=== PATIENT | female | born 1990 | race Caucasian/White ===

== ENCOUNTER → 2017-06-29 16:22 | Outpatient (CLI) | payer MEDICAID, SELFPAY ==
[2017-06-29 19:57] LABS: Chlamydia Trachomatis by PCR Negative (Negative); Neisserai gonorrhoeae by PCR Negative (Negative); Probe Check PASS; Sample Adequacy Control PASS; Specimen Processing Control PASS
[2017-07-04 15:58] LABS: HPV Reflexed? NOT INDICATED
== END ==
PROVIDERS: Visit Provider Obstetrics & Gynecology
DX: Z32.01 Encounter for pregnancy test, result positive (principal); Z12.4 Encounter for screening for malignant neoplasm of cervix; Z11.3 Encounter for screening for infections with a predominantly sexual mode of transmission
CPT/HCPCS: 87491; 87591; 88175; G0145

== ENCOUNTER → 2017-07-20 11:23 | Outpatient (CLI) | payer MEDICAID, SELFPAY ==
[2017-07-20 13:44] LABS: Color, Urine Straw (Yellow); Glucose, Dipstick Normal (Normal); Ketone-Dipstick Negative (Negative); Leukocyte Esterase-Dipstick Negative /ul (Negative); Nitrite-Dipstick Negative (Negative); Occult Blood-Urine Negative /ul (Negative); Protein-Dipstick Negative (Negative); Specific Gravity, Urine 1.005 (1.002-1.030); Urine Bilirubin Dipstick Negative (Negative); Urine Clarity Clear (Clear); Urine Urobilinogen Normal (Normal)
[2017-07-20 13:53] LABS: Absolute Lymphocyte Count 2.38 X10^3/ul (0.83-4.51); Absolute Neutrophil Count 5.6 X10^3/uL (2.0-7.7); Basophil# 0.01 X10^3/uL; Basophil% 0.1 % (0-1); Eosinophil# 0.06 X10^3/uL; Eosinophils% 0.7 % (0-5); Hematocrit 38.4 % (37-47); Hemoglobin 12.7 g/dl (12.0-15.0); Lymphocyte # 2.38 X10^3/ul (4.0); Lymphocyte % 27.3 % (19-41); Mean Corp Hgb Conc 33.1 g/gl (32-36); Mean Corpuscular Hgb 31.4 pg (27.0-32.0); Mean Platelet Vol. 10.7 fl (6.2-12.0); Monocyte# 0.66 X10^3/uL; Monocyte% 7.6 % (0-10); Neutrophil # 5.59 X10^3/uL (2.7-7.7); Neutrophil % 64.1 % (47-70); Platelet Count 301 K/mm3 (150-450); RBC Distribution Width CV 13.9 % (11.6-14.6); RBC Distribution Width SD 48.5 fl (35.1-43.9); Red Blood Count 4.04 M/mm3 (4.2-5.4); White Blood Count 8.7 K/mm3 (4.4-11.0)
[2017-07-20 13:54] LABS: POSITIVE COUNT NO; POSITIVE DIFFERENTIAL NO; POSITIVE MORPHOLOGY NO
[2017-07-20 13:56] LABS: COTININE Drug Screen Negative (<200 ng/mL)
[2017-07-20 13:59] LABS: Amphetamine Urine VISTA NEGATIVE (<1000 ng/mL); Barbiturate Urine VISTA NEGATIVE (< 200 ng/mL); Benzodiazepine Urine VISTA NEGATIVE (< 200 ng/mL); Cocaine Urine VISTA NEGATIVE (< 300 ng/mL); Ecstacy Urine VISTA NEGATIVE (< 500 ng/mL); Methadone Urine VISTA NEGATIVE (< 300 ng/mL); PCP Urine VISTA NEGATIVE (< 25 ng/mL); THC Urine VISTA NEGATIVE (< 50 ng/mL)
[2017-07-20 14:04] LABS: Vista UDS pH Range 6
[2017-07-21 01:09] LABS: Prenatal RPR NONREACTIVE (NONREACTIVE)
[2017-07-21 10:23] LABS: HIV - WCH Non-Reactive (Nonreactive); Rubella IgG < 0.2 IU/mL
[2017-07-21 11:20] LABS: HEPATITIS B SURFACE AG Negative (Negative)
[2017-07-21 11:21] LABS: Hep C Antibodies 0.2 s/co ratio (0.0-0.9)
== END ==
PROVIDERS: Visit Provider Obstetrics & Gynecology
DX: Z34.81 Encounter for supervision of other normal pregnancy, first trimester (principal)
CPT/HCPCS: 36415; 80307; 81002; 84443; 85025; 86703; 86762; 86803; 87340

== ENCOUNTER 2017-11-21 15:30 | Outpatient (CLI) | payer MEDICAID, SELFPAY ==
[2017-11-21 13:14] VITALS: BMI 41.1
[2017-11-21 13:23] LABS: Mucous, Urine 0 SEEN /hpf (<or=2+); Red Blood Cells-Urine 0 SEEN /hpf (0-5); Squamous Epithelial Cells - UA 0 SEEN /hpf (5-10); White Blood Cells 0 SEEN /hpf (0-5)
[2017-11-21 13:27] LABS: Hematocrit 32.4 % (37-47); Hemoglobin 10.8 g/dl (12.0-15.0); Mean Corp Hgb Conc 33.3 g/gl (32-36); Mean Corpuscular Hgb 31.9 pg (27.0-32.0); Mean Corpuscular Volume 95.6 fL (81-99); Mean Platelet Vol. 10.2 fl (6.2-12.0); Platelet Count 232 K/mm3 (150-450); RBC Distribution Width CV 13.4 % (11.6-14.6); RBC Distribution Width SD 44.8 fl (35.1-43.9); Red Blood Count 3.39 M/mm3 (4.2-5.4); White Blood Count 11.1 K/mm3 (4.4-11.0)
[2017-11-21 13:28] LABS: Color, Urine Yellow (Yellow); Glucose, Dipstick Normal (Normal); Ketone-Dipstick Negative (Negative); Leukocyte Esterase-Dipstick Negative /ul (Negative); Nitrite-Dipstick Negative (Negative); Occult Blood-Urine Negative /ul (Negative); Protein-Dipstick Negative (Negative); Urine Bilirubin Dipstick Negative (Negative); Urine Clarity Cloudy (Clear); Urine Urobilinogen Normal (Normal)
[2017-11-21 13:29] LABS: Scan Indicated on CBC? Y/N NO
[2017-11-21 13:34] LABS: Bacteria RARE /hpf (None Seen)
[2017-11-21 13:35] LABS: Amorphous Sediment 2+
[2017-11-21 13:46] LABS: ALB/GLOB Ratio 0.6 RATIO (0.9-2.4); AST(SGOT) 20 U/L (15-37); Alanine Aminotransfer ALT/SGPT 44 U/L (13-56); Albumin, Serum 2.4 g/dL (3.2-5.0); Alkaline Phosphatase 82 U/L (45-117); Anion Gap 10 (5-15); BUN 9 mg/dL (7-18); BUN/Creat Ratio 16.3 RATIO (10-20); Calcium,Total 8.8 mg/dL (8.5-10.1); Chloride 107 mmol/L (98-107); Creatinine, Serum 0.55 mg/dL (0.55-1.02); EST Glomerular Filtration Rate 141 mL/min (>60); Est Glom Filt Rate - Afr Amer 170 mL/min (>60); Estimated Creatinine Clearance 122.59 ml/min; Globulin 4.2 g/dL (2.2-4.2); Glucose 97 mg/dL (74-106); Potassium 3.5 mmol/L (3.5-5.1); Protein, Total 6.6 g/dL (6.4-8.2); Sodium Level 139 mmol/L (136-145)
--- NOTE | 2017-11-21 15:36 | US_ITS ---
STUDY: ABDOMINAL ULTRASOUND - RIGHT UPPER QUADRANT REASON FOR VISIT: Female, 27 years old. Right upper quadrant pain, 26 weeks TECHNIQUE: Ultrasound evaluation of the right upper quadrant was performed with real-time and static maria-scale imaging. TECHNICAL QUALITY: Adequate. COMPARISON: None. FINDINGS: Liver: The liver measures 16.9 cm. There is normal echogenicity of the liver. The bile ducts are within normal limits. There is hepatic color flow. The direction of portal flow is hepatopetal. There is no demonstrated mass lesion. Gallbladder: Normal distended gallbladder. The gallbladder wall measures 3 mm. There is a negative sonographic Vladerrama's sign. There is no pericholecystic fluid. There are multiple echogenic structures within the gallbladder, consistent with multiple gallstones. Common Bile Duct (C.B.D.): The common bile duct measures 5 mm. Pancreas: Normal size of the head, body and tail of the pancreas. There is normal echogenicity of the pancreas. There is no demonstrated pancreatic mass or cyst. Right Kidney: Normal size of the right kidney. The right kidney measures 11.7 cm. Normal renal cortex. The right cortex measures 1.6 cm. There is no demonstrated renal mass or cyst. There is no right hydronephrosis. US/Gallbladder IMPRESSION: Multiple gallstones with gallbladder sludge. No pericholecystic fluid or wall thickening. Electronically Signed: Miguel Hill DO at 17:15 EDT Tel , Service support ,
[2017-11-21] MEDS: Famotidine 20 MG Tablet PO (17:48)
--- NOTE | 2017-11-21 20:48 | OB.TRI.NOTE ---
History of Present Illness Was patient seen by the physician?: Yes Reason For Visit: ABDOMINAL PAIN 26 WEEKS Date of Service: 11/21/17 Final MAAME: 02/24/18 Gestational age: 26 Weeks and 3 Days History of Present Illness: 27 yo [id number] female at 26+ wk presents with severe intermittent abdominal and back pain. Denies tameable pain. No ROM. No vaginal bleeding. + FM. H/o prior 40 wk delivery. States severe pain lasting up to 45 mins in night time. Denies constipation or diarrhea. Some nausea when pain present. Pain is mid abdomen and to back. Not related to meal intake but started about 2 hr after a meal last night. Pain initially 8-9 / 10 scale. went away when she walking into unit initially. Walking relieved pain some. Stretching relieved pain in upper abdomen some. Pain makes it hard to breathe. Labs drawn: normal CBC but WBC 11.1 K/mm (sl inc 11 normal), CMP WNL (sl inc , but still normal, ALT). UA negative for blood. \ Pt went home after labs done initially. not painful Called in to office w/ CC of severe pain in car after starting home and advised to return for more evaluation. ABDOMINAL SONO: Gallbladder normal distended gallbladder. Wall is 3 mm. Neg Valderrama's sign. No pericholecystic fluid . multiple echogenic gallstones noted, some sludge. CBD 5 mm Pancreas and kidneys WNL. Allergies NSAIDS (Non-Steroidal Anti-Inflamma Allergy (Verified 01/04/17 12:16) Unknown Physical Exam General: Alert, Oriented x3, Cooperative, No apparent distress HEENT: Atraumatic Abdomen: Soft, Non Tender, Gravid - nonsurgical abdomen. Upper abdomen with Neg Valderrama's sign. NT, Obese Extremities:: No clubbing, No cyanosis, No edema Neurological: Cranial nerves II-XII grossly intact Estimated gestational size: Appropriate for gestational size NST - FHR Rate Baby A Baseline: 130-140 with small accels Variability:: Minimal Accelerations:: 10 x 10 Decelerations:: None NST Reactive:: Yes, Appropriate for gestational age FHR Category:: Category I Uterine Activity:: no UCs noted. Impression/Plan 26 yo [id number] female at 26 + wk EGA. Abdominal pain. tolerated diet without exacerbation of sx. Elected to go home. Gallstones without evidence of cholecystitis. -- nonfat diet -- mylicon qid (for potential gas pain) -- Pepcid 20 mg po bid (for potential reflux, gastritis as contributing to pain) Advised given normal LFTs, WBC sl elevated only. with gallstones in : expectant management. RTO in 1 wk for repeat evaluation.
--- NOTE | 2017-11-21 20:59 | OB.TRI.HP_ITS ---
History of Present Illness Was patient seen by the physician?: Yes Reason For Visit: ABDOMINAL PAIN 26 WEEKS Date of Service: 11/21/17 Final MAAME: 02/24/18 Gestational age: 26 Weeks and 3 Days History of Present Illness: 27 yo [id number] female at 26+ wk presents with severe intermittent abdominal and back pain. Denies tameable pain. No ROM. No vaginal bleeding. + FM. H/o prior 40 wk delivery. States severe pain lasting up to 45 mins in night time. Denies constipation or diarrhea. Some nausea when pain present. Pain is mid abdomen and to back. Not related to meal intake but started about 2 hr after a meal last night. Pain initially 8-9 / 10 scale. went away when she walking into unit initially. Walking relieved pain some. Stretching relieved pain in upper abdomen some. Pain makes it hard to breathe. Labs drawn: normal CBC but WBC 11.1 K/mm (sl inc 11 normal), CMP WNL (sl inc , but still normal, ALT). UA negative for blood. \ Pt went home after labs done initially. not painful Called in to office w/ CC of severe pain in car after starting home and advised to return for more evaluation. ABDOMINAL SONO: Gallbladder normal distended gallbladder. Wall is 3 mm. Neg Valderrama's sign. No pericholecystic fluid . multiple echogenic gallstones noted, some sludge. CBD 5 mm Pancreas and kidneys WNL. Allergies NSAIDS (Non-Steroidal Anti-Inflamma Allergy (Verified 01/04/17 12:16) Unknown Physical Exam General: Alert, Oriented x3, Cooperative, No apparent distress HEENT: Atraumatic Abdomen: Soft, Non Tender, Gravid - nonsurgical abdomen. Upper abdomen with Neg Valderrama's sign. NT, Obese Extremities:: No clubbing, No cyanosis, No edema Neurological: Cranial nerves II-XII grossly intact Estimated gestational size: Appropriate for gestational size NST - FHR Rate Baby A Baseline: 130-140 with small accels Variability:: Minimal Accelerations:: 10 x 10 Decelerations:: None NST Reactive:: Yes, Appropriate for gestational age FHR Category:: Category I Uterine Activity:: no UCs noted. Impression/Plan 26 yo [id number] female at 26 + wk EGA. Abdominal pain. tolerated diet without exacerbation of sx. Elected to go home. Gallstones without evidence of cholecystitis. -- nonfat diet -- mylicon qid (for potential gas pain) -- Pepcid 20 mg po bid (for potential reflux, gastritis as contributing to pain) Advised given normal LFTs, WBC sl elevated only. with gallstones in : expectant management. RTO in 1 wk for repeat evaluation.
== END 2017-11-21 19:30 | disposition home or self-care (01) ==
LOC: WPOUT 15:41 → WP 15:42
PROVIDERS: Visit Provider Obstetrics & Gynecology
DX: O99.612 Diseases of the digestive system complicating pregnancy, second trimester (principal); K80.20 Calculus of gallbladder without cholecystitis without obstruction; Z3A.26 26 weeks gestation of pregnancy
CPT/HCPCS: 36415; 59050; 76705; 80053; 81001; 85027; 99218; G0378

== ENCOUNTER → 2017-12-05 10:56 | Outpatient (CLI) | payer MEDICAID, SELFPAY ==
[2017-12-05 11:52] LABS: Hematocrit 34.1 % (37-47); Hemoglobin 11.4 g/dl (12.0-15.0); Mean Corp Hgb Conc 33.4 g/gl (32-36); Mean Corpuscular Hgb 32.1 pg (27.0-32.0); Mean Corpuscular Volume 96.1 fL (81-99); Mean Platelet Vol. 10.2 fl (6.2-12.0); Platelet Count 272 K/mm3 (150-450); RBC Distribution Width CV 13.4 % (11.6-14.6); RBC Distribution Width SD 44.4 fl (35.1-43.9); Red Blood Count 3.55 M/mm3 (4.2-5.4); White Blood Count 11.5 K/mm3 (4.4-11.0)
[2017-12-05 11:53] LABS: Scan Indicated on CBC? Y/N NO
[2017-12-05 11:56] LABS: Glucose Challenge Gest 1H 50g 96 mg/dL (70-140)
== END ==
PROVIDERS: Visit Provider Obstetrics & Gynecology
DX: Z34.83 Encounter for supervision of other normal pregnancy, third trimester (principal)
CPT/HCPCS: 36415; 82950; 85027

== ENCOUNTER → 2018-01-29 14:19 | Outpatient (CLI) | payer MEDICAID, SELFPAY ==
[2018-01-29 18:13] LABS: Group B Strep DNA By PCR Negative (Negative); Internal Control PASS; Probe Check PASS; Specimen Processing Control PASS
== END ==
PROVIDERS: Visit Provider Obstetrics & Gynecology
DX: Z36.85 Encounter for antenatal screening for Streptococcus B (principal)
CPT/HCPCS: 87081; 87653

== ENCOUNTER 2018-03-06 03:19 | Inpatient (IN) | payer MEDICAID, SELFPAY ==
[2018-03-06] VITALS (21 sets, daily range): BP systolic 94–145; BP diastolic 41–115; PULSE 50–87; RESP 16–20; TEMP 35.9–36.8; O2SAT 95–100; BMI 47.2
[2018-03-06] MEDS: Lactated Ringers 1,000 ML 50 ML IV ×2 (03:30→05:43)
[2018-03-06 03:49] LABS: Hematocrit 41.1 % (37-47); Hemoglobin 13.7 g/dl (12.0-15.0); Mean Corp Hgb Conc 33.3 g/gl (32-36); Mean Corpuscular Hgb 31.5 pg (27.0-32.0); Mean Corpuscular Volume 94.5 fL (81-99); Mean Platelet Vol. 11.4 fl (6.2-12.0); Platelet Count 316 K/mm3 (150-450); RBC Distribution Width CV 14.1 % (11.6-14.6); RBC Distribution Width SD 46.8 fl (35.1-43.9); Red Blood Count 4.35 M/mm3 (4.2-5.4); Scan Indicated on CBC? Y/N NO; White Blood Count 19.4 K/mm3 (4.4-11.0)
--- NOTE | 2018-03-06 07:24 | PCM.PN.BLA ---
Progress Note 40 3/7 wk EGA. Presented complete at 3:00 am approx. Began pushing at approx 3:30 am. Trial of vacuum assisted descent x two, no progress. continues to push. Advised at appt yesterday that this baby is 2# larger than her first , for which she needed vacuum assist. LGA at approx 9# 9 oz. But not large enough to offer primary C/S. She declined C/S and declined induction, but advised needed by 42 wk at latest and this was scheduled for 03/09. Male fetus, with AC off scale large. Advised yesterday in ofc that there is a high likelihood of CPD. Discussed also: shoulder dystocia. Advised at yesterday's ofc appt that she may get to complete and push for 2-3 hours with no descent and still require C/S Has been complete and pushing now for about 4 hrs. EFM -- 120s with early decels. UCs noted q 1.5-3 min or so. Recommend C/S. Will perform JOSELUIS. C/S in progress now in OR. Charge nurse aware. Labor nurse also aware. May try nitrous. C/S orders placed and at medical secretary receptionist desk.
[2018-03-06] MEDS: Sodium Citrate/Citric Acid 30 ML UDC PO (08:59)
[2018-03-06] MEDS: Oxytocin 30 units/NS 500 ml 30 UNITS/500 ML IV.SOLN 167 UNITS IV (09:30)
[2018-03-06] MEDS: Lactated Ringers 1,000 ML 100 ML IV ×2 (12:46→22:51)
--- NOTE | 2018-03-06 20:14 | PCM.OP.BLANK ---
Operative Report Date of Procedure: 03/06/18 PROCEDURE: Primary C section. Preoperative diagnosis: 41 3/7 wk EGA labor , CPD LGA Postop diagnosis: 41 3/7 wk EGA labor , CPD LGA Anesthesia: Spinal, Emmanuel Be MD and Fco Alarcon MD Surgeon: Marixa Chung MD Cartridge Belt Puncher: Magdi Early MD EBL 800 cc Complications: none Drains: Ayala draining dark hailey , concentrated appearing urine Fluids: replacement LR Findings: At amniotomy, meconium stained fluid was noted. Thorne viable male in vertex presentation. Direct OP Apgars 8/9, Baby weight: 9# 9oz There was a normal appearing uterus, fallopian tubes and ovaries bilaterally. PATH: Routine cord gases were sent. Narrative account: Patient presented to L and D complete at 3 - 3:30 am. Began pushing 3:30 am, and by 7:30 am no progress noted with a thickened anterior lip noted. This baby is approx 2# larger than her last baby, which was delivered by vacuum assisted vaginal delivery. Unable to proceed to C/s immediately 2/2 scheduled C/s in progress. After the risks, benefits and alternatives of the procedure were reviewed with the patient, informed consent was obtained. The patient was taken to the Operating room with an IV running, and placed in a seated position on the operating table for placement of the spinal. Once the spinal had been administered, she was briefly frog-legged for Ayala catheter placement and vaginal vault prep, and then repositioned to dorsal supine position with leftward displacement of the uterus, and prepped and draped in the usual sterile fashion. Once the spinal was deemed adequate, a Pfannenstiel skin incision was created using the knife . The incision was carried down to the rectus fascia using the knife. The fascia was nicked in the midline. The fascial incision was extended bilaterally using curved Bowman scissors. The superior aspect of the fascial incision was grasped with Silvana clamps and tented up and the underlying rectus abdominal muscles were dissected free. In a similar manner, the inferior aspect of the facial incision was grasped with Silvana clamps tented up and the underlying rectus abdominal muscles were dissected free. The rectus abdominis muscles were in the midline and the peritoneum was identified and entered by blunt dissection high in the incision. The peritoneum was stretched laterally and a bladder blade was inserted. A bladder flap was created along the lower uterine segment with Metzenbaum scissors . The uterine incision was then created using Metzenbaum scissors. The operators fingertips were used to extend the uterine incision by blunt dissection in a caudad- cephalad orientation . Meconium stained fluid was noted at amniotomy. The vertex was then delivered atraumatically through the incision. The OP and nares were bulb suctioned on the abdomen. The shoulders delivered easily . The cord clamped x two and cut. And the infant was handed off to the nurse awaiting delivery after briefly showing him to his parents. The baby had a spontaneous, vigorous cry. The placenta was then delivered. The uterus was exteriorized and cleared of clots and debris . The uterine incision was repaired with 1 Vicryl in a running locked fashion. A second imbricating layer was then placed, using 1 Monocryl in running nonlocked fashion. Bovie cautery was used to treat any bleeding areas . Excellent hemostasis was noted. At this point the uterus was returned to the abdominal cavity. The gutters were cleared of clots and debris and the incision at the uterus was inspected. The incision was irrigated. Servando was applied along the entire incision for continued hemostasis. Excellent hemostasis was noted. The peritoneal edges and rectus abdominis muscles were then reapproximated in the midline with interrupted vertical mattress stitches of 1 Vicryl. Excellent hemostasis was noted at the subfascial space The fascia was closed in a running nonlocked fashion with a Stratofix. The Subcutaneous fatty tissue was Bovie cauterized as needed for hemostasis. Servando was liberally dusted at this layer to prevent seroma formation. This layer was then reapproximated in a single layer closure of running 3-0 Vicryl to eliminate space. The skin edges were closed in a Subcuticular stitch of 4-0 Monocryl. The incision was cleansed. Cavilon, and Mepilex dressing were applied to the skin . The patient was then transferred to the recovery room bed in stable condition after tolerating the procedure well. Sponge, lap, needle and instrument counts correct times two. Medications given preop and intraoperatively included: Ancef 3gm IV given credit operations processor to the operating room. The patient also received Pitocin given IV after cord clamp, and prophylactic Methergine 0.2 mg IM times one for atony of the lower uterine segment without hemorrhage. For a complete listing of medications given preop and intraoperatively, please see the anesthesia record.
--- NOTE | 2018-03-06 20:34 | PCM.DCCSEC ---
Discharge Diet: No Restrictions Discharge Activity: May not drive while taking narcotic pain medications., May Shower, May Take a Tub Bath May resume sexual activity in: 4-6 weeks Lifting Restrictions: 20 pounds Additional Activity Instructions:: Nothing in the vagina for 4-6 weeks. You may return to work/school in 6 weeks. Change Dressing in (Days):: 7 Remove Dressing in (days):: 7 Cleanse incision/area with: Soap & Water, Keep Dressing Clean & Dry Additional Instructions: If you experience any of the following, contact your healthcare provider. Bleeding that soaks a pad every hour for 2 hours Fever 100.4 or higher Unrelieved incision or abdominal pain Swelling, redness, discharge or bleeding from your incision Problems urinating (including inability to urinate or burning while urinating). Visual changes Severe headache Flu-like symptoms Pain or redness in one of both of your breasts Pain, warmth, tenderness or swelling in your legs, especially the calf area Frequent nausea and vomiting Symptoms of depression or anxiety If you experience any of the following, call 911 or go to the nearest Emergency Room. Chest pain Problems breathing Seizure activity Partial or complete paralysis of a body part, slurred speech, weakness or drooping of the face, or a sudden inability to walk or hold your balance Allergies/Adverse Reactions: Allergies NSAIDS (Non-Steroidal Anti-Inflamma Allergy (Verified 01/04/17 12:16) Unknown Medications to take at Discharge Pnv No.95/Ferrous Fum/Folic AC [ Multivitamin Tablet] 1 each PO DAILY 01/04/17 Acetaminophen [Tylenol] 1,000 mg PO Q8H PRN tablet 03/06/18 Oxycodone [Oxyir] 5 - 10 mg PO Q4H PRN PRN 7 Days #20 tab 03/06/18 Senna/Docusate Sodium [Senokot-S] 1 - 2 tablet PO DAILY PRN #30 tablet 03/06/18 The following prescriptions were given: Oxycodone [Oxyir] 5 - 10 mg PO Q4H PRN PRN 7 Days #20 tab PRN Reason: Mod-Severe Pain (-02/21) Senna/Docusate Sodium [Senokot-S] 1 - 2 tablet PO DAILY PRN #30 tablet PRN Reason: Constipation Follow-Up: Call to make an appointment with your doctor for an incision check in 1-2 weeks. You will also need a 6 week post- follow up appointment. Test results from this visit will be discussed in further detail at your follow-up appointment, if applicable. Please Follow Up With: Marixa Chung MD - [phone] When: Call to make an appointment for an incision check in 2 weeks. Primary Care Physician: Care Physician,No Primary [Primary Care Provider] - Proposed Discharge Date: 03/09/18
--- NOTE | 2018-03-06 20:38 | DCINST_ITS ---
Discharge Diet: No Restrictions Discharge Activity: May not drive while taking narcotic pain medications., May Shower, May Take a Tub Bath May resume sexual activity in: 4-6 weeks Lifting Restrictions: 20 pounds Additional Activity Instructions:: Nothing in the vagina for 4-6 weeks. You may return to work/school in 6 weeks. Change Dressing in (Days):: 7 Remove Dressing in (days):: 7 Cleanse incision/area with: Soap & Water, Keep Dressing Clean & Dry Additional Instructions: If you experience any of the following, contact your healthcare provider. * Bleeding that soaks a pad every hour for 2 hours * Fever 100.4 or higher * Unrelieved incision or abdominal pain * Swelling, redness, discharge or bleeding from your incision * Problems urinating (including inability to urinate or burning while urinating). * Visual changes * Severe headache * Flu-like symptoms * Pain or redness in one of both of your breasts * Pain, warmth, tenderness or swelling in your legs, especially the calf area * Frequent nausea and vomiting * Symptoms of depression or anxiety If you experience any of the following, call 911 or go to the nearest Emergency Room. * Chest pain * Problems breathing * Seizure activity * Partial or complete paralysis of a body part, slurred speech, weakness or drooping of the face, or a sudden inability to walk or hold your balance Allergies/Adverse Reactions: Allergies NSAIDS (Non-Steroidal Anti-Inflamma Allergy (Verified 01/04/17 12:16) Unknown Medications to take at Discharge Pnv No.95/Ferrous Fum/Folic AC [ Multivitamin Tablet] 1 each PO DAILY 01/04/17 Acetaminophen [Tylenol] 1,000 mg PO Q8H PRN tablet 03/06/18 Oxycodone [Oxyir] 5 - 10 mg PO Q4H PRN PRN 7 Days #20 tab 03/06/18 Senna/Docusate Sodium [Senokot-S] 1 - 2 tablet PO DAILY PRN #30 tablet 03/06/18 The following prescriptions were given: Oxycodone [Oxyir] 5 - 10 mg PO Q4H PRN PRN 7 Days #20 tab PRN Reason: Mod-Severe Pain (-02/21) Senna/Docusate Sodium [Senokot-S] 1 - 2 tablet PO DAILY PRN #30 tablet PRN Reason: Constipation Follow-Up: Call to make an appointment with your doctor for an incision check in 1-2 weeks. You will also need a 6 week post- follow up appointment. Test results from this visit will be discussed in further detail at your follow- up appointment, if applicable. Please Follow Up With: Marixa Chung MD - [phone] When: Call to make an appointment for an incision check in 2 weeks. Primary Care Physician: Care Physician,No Primary [Primary Care Provider] - Proposed Discharge Date: 03/09/18
[2018-03-07] VITALS (8 sets, daily range): BP systolic 90–132; BP diastolic 34–65; PULSE 67–86; RESP 16–20; TEMP 36.3–37.2; O2SAT 96–97
[2018-03-07 07:07] LABS: Hematocrit 33.1 % (37-47); Mean Corp Hgb Conc 33.2 g/gl (32-36); Mean Corpuscular Hgb 31.5 pg (27.0-32.0); Mean Corpuscular Volume 94.8 fL (81-99); Mean Platelet Vol. 11.1 fl (6.2-12.0); Platelet Count 266 K/mm3 (150-450); RBC Distribution Width CV 14.2 % (11.6-14.6); RBC Distribution Width SD 46.2 fl (35.1-43.9); Red Blood Count 3.49 M/mm3 (4.2-5.4); White Blood Count 20.6 K/mm3 (4.4-11.0)
[2018-03-07 07:08] LABS: Scan Indicated on CBC? Y/N NO
--- NOTE | 2018-03-07 08:05 | PCM.PN.OB ---
Subjective: POD#1 Primary C/S for CPD. 41 3/7 wk EGA Doing well. Breast feeding. Plans circumcision. 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 tylenol and OxyIR only ordered. Pain control adequate for now. Objective: Sitting up in bed, holding sleeping baby to breast. - Physical Exam General: Alert, Oriented x3, Cooperative, No apparent distress HEENT: Atraumatic Neck: Supple Abdomen: Soft - Fundus firm NT at 2 cm inferior to umbilicus Skin: Incision - Mepilex dressing CDI. Neurological: Cranial nerves II-XII grossly intact Psych/Mental Status: Flat Affect - per usual affect in office. Vital Signs Temp Pulse Resp BP Pulse Ox 97.9 F 81 17 99/34 L 97 03/07/18 04:27 03/07/18 06:40 03/07/18 06:40 03/07/18 04:27 03/07/18 06:40 Oxygen Delivery Method Room Air Weight: 113.398 kg Body Mass Index (BMI) 47.2 Intake and Output for Last 24 Hours 03/05/18 03/06/18 03/07/18 23:59 23:59 23:59 Intake Total 3921 / 3921 755 / 755 Output Total 4000 / 4000 3500 / 3500 Balance -79 / -79 -2745 / -2745 Laboratory Tests Past 24 Hrs 03/07/18 06:40 WBC 20.6 H RBC 3.49 L Hgb 11.0 L Hct 33.1 L MCV 94.8 MCH 31.5 MCHC 33.2 RDW 14.2 RDW Differential 46.2 H Plt Count 266 MPV 11.1 Medical Necessity - Tobacco Use Smoking Status: Never smoker Assessment/Plan POD#1 Primary C/S CPD 41 3/7 wk EGA Stable postop Inc diet and activity as tolerated. Begin po meds. No NSAIDs planned. D/C bolden for voiding trial. May shower. S/L or discontinue IV later today. Postop leukocytosis. Likely reactive change due to labor, with C/S delivery. Repeat CBC in am. Tomorrow Watch temps.
--- NOTE | 2018-03-07 10:14 | NURSING ---
Ayala Cath removed, pt tolerated well. Instructed pt to call nurse for assistance first time getting up. Offered tylenol for pain control, so pt was comfortable when she got up to bathroom later. Pt declined at this time.
--- NOTE | 2018-03-07 12:50 | NURSING ---
Pt given VIS and discussed MMR vaccine due to pt not being immune. Pt declined vaccine. Karen
[2018-03-07] MEDS: Acetaminophen 500 MG Tablet 1000 MG PO (16:26)
[2018-03-08 01:50] VITALS: BP 122/53; PULSE 72; RESP 18; TEMP 36.6; O2SAT 96
[2018-03-08] MEDS: oxyCODONE 5 MG Tablet PO ×2 (01:58→14:08)
[2018-03-08 05:31] LABS: Hematocrit 34.4 % (37-47); Hemoglobin 11.1 g/dl (12.0-15.0); Mean Corp Hgb Conc 32.3 g/gl (32-36); Mean Corpuscular Volume 96.1 fL (81-99); Mean Platelet Vol. 10.5 fl (6.2-12.0); Platelet Count 276 K/mm3 (150-450); RBC Distribution Width CV 14.6 % (11.6-14.6); RBC Distribution Width SD 48.4 fl (35.1-43.9); Red Blood Count 3.58 M/mm3 (4.2-5.4); Scan Indicated on CBC? Y/N NO; White Blood Count 17.2 K/mm3 (4.4-11.0)
[2018-03-08 07:40] VITALS: BP 101/46; PULSE 66; RESP 16; TEMP 36.6; O2SAT 95
[2018-03-08] MEDS: Acetaminophen 500 MG Tablet 1000 MG PO (07:43)
--- NOTE | 2018-03-08 08:21 | PCM.PN.OB ---
Subjective: POD#2 C/S for CPD doing well. Would like to go home later today if baby is released. Circumcision done. Continues to nurse. No concerns but is asking about incision care, showering, when to remove dressing. States still sore. (encouraged abdominal binder use prn and pain med prn). Denies any pp depression. - Physical Exam General: Alert, Oriented x3, Cooperative, No apparent distress HEENT: Atraumatic Abdomen: Soft - Fundus firm NT at umbilicus. Skin: Incision - Mepilex CDI. NO shadow drainage. Psych/Mental Status: Normal Affect - more smiling today, affect not as flat Vital Signs Temp Pulse Resp BP Pulse Ox 97.8 F 72 18 122/53 H 96 03/08/18 01:50 03/08/18 01:50 03/08/18 01:50 03/08/18 01:50 03/08/18 01:50 Oxygen Delivery Method Room Air Weight: 113.398 kg Body Mass Index (BMI) 47.2 Intake and Output for Last 24 Hours 03/06/18 03/07/18 03/08/18 23:59 23:59 23:59 Intake Total 3921 / 3921 865 / 865 Output Total 4000 / 4000 6200 / 6200 Balance -79 / -79 -5335 / -5335 Laboratory Tests Past 24 Hrs 03/08/18 05:15 WBC 17.2 H RBC 3.58 L Hgb 11.1 L Hct 34.4 L MCV 96.1 MCH 31.0 MCHC 32.3 RDW 14.6 RDW Differential 48.4 H Plt Count 276 MPV 10.5 Medical Necessity - Tobacco Use Smoking Status: Never smoker Assessment/Plan POD#2 Primary C/S CPD 41 3/7 wk EGA Stable postop. Requesting Dischg today if baby is released. Reviewed incision care. May use abdominal binder also when up and moving to support incision. RTO in 2 wk for postop incision check, then to 6 wk pp check. Postop leukocytosis. Resolving on today's CBC.
--- NOTE | 2018-03-08 08:25 | PCM.DC.SUM ---
Hospital Course and Treatment Operations: - - C section for CPD Summary of Care Provided: The patient is a 27 year old female at 41 1/2 wk EGA. Had declined induction and hoping to avoid C/S. Presents in labor with LGA fetus Complete at presentation. Pushing and no change in descent by 4+ hrs of pushing without epidural. Labia edematous and anterior lip edematous then , approx 75 % effaced. Advised C/S indicated. C/S performed JOSELUIS (other C/S in progress). Delivered a herron male 9# 9 oz. Meconium stained fluid . Normal pelvic anatomy at C/s and procedure uneventful. Postop course: inial leukocytosis, likely reactive change and on recheck normalizing WBCs. CBC stable. Benign exam. Home per pt request on POD#2 to f/u in ofc within 1-2 wks. - Physical Exam Vital Signs Temp Pulse Resp BP Pulse Ox 97.8 F 72 18 122/53 H 96 03/08/18 01:50 03/08/18 01:50 03/08/18 01:50 03/08/18 01:50 03/08/18 01:50 Oxygen Delivery Method Room Air Weight: 113.398 kg Body Mass Index (BMI) 47.2 Intake and Output for Last 24 Hours 03/06/18 03/07/18 03/08/18 23:59 23:59 23:59 Intake Total 3921 / 3921 865 / 865 Output Total 4000 / 4000 6200 / 6200 Balance -79 / -79 -5335 / -5335 Laboratory Tests Past 24 Hrs 03/08/18 05:15 WBC 17.2 H RBC 3.58 L Hgb 11.1 L Hct 34.4 L MCV 96.1 MCH 31.0 MCHC 32.3 RDW 14.6 RDW Differential 48.4 H Plt Count 276 MPV 10.5 Discharge Diet: No Restrictions Discharge Activity: May not drive while taking narcotic pain medications., May Shower, May Take a Tub Bath May resume sexual activity in: 4-6 weeks Additional Activity Instructions:: Nothing in the vagina for 4-6 weeks. You may return to work/school in 6 weeks. Change Dressing in (Days):: 7 Remove Dressing in (days):: 7 Cleanse incision/area with: Soap & Water, Keep Dressing Clean & Dry Home Medications: Medications to take at Discharge Pnv No.95/Ferrous Fum/Folic AC [ Multivitamin Tablet] 1 each PO DAILY 01/04/17 Acetaminophen [Tylenol] 1,000 mg PO Q8H PRN tablet 03/06/18 Oxycodone [Oxyir] 5 - 10 mg PO Q4H PRN PRN 7 Days #20 tab 03/06/18 Senna/Docusate Sodium [Senokot-S] 1 - 2 tablet PO DAILY PRN #30 tablet 03/06/18 Following Prescrptions Were Given to Patient: Oxycodone [Oxyir] 5 - 10 mg PO Q4H PRN PRN 7 Days #20 tab PRN Reason: Mod-Severe Pain (4-02/21) Senna/Docusate Sodium [Senokot-S] 1 - 2 tablet PO DAILY PRN #30 tablet PRN Reason: Constipation Primary Care Physician: Care Physician,No Primary [Primary Care Provider] - Please Follow Up With: Marixa Chung MD - [phone] When: Call to make an appointment for an incision check in 2 weeks. Medical Necessity - Tobacco Use Smoking Status: Never smoker Meaningful Use Info Meaningful Use Diagnoses (Choose all that apply): None applicable
[2018-03-08 14:00] VITALS: BP 111/69; PULSE 83; RESP 20; TEMP 36.6
== END 2018-03-08 17:15 | disposition home or self-care (01) | DRG 540 ==
PROVIDERS: Admitting Provider Obstetrics & Gynecology; Referring Provider Obstetrics & Gynecology; Visit Provider Obstetrics & Gynecology
DX: O33.5XX0 Maternal care for disproportion due to unusually large fetus, not applicable or unspecified (principal); O62.0 Primary inadequate contractions; O34.43 Maternal care for other abnormalities of cervix, third trimester; O48.0 Post-term pregnancy; O77.0 Labor and delivery complicated by meconium in amniotic fluid; O99.214 Obesity complicating childbirth; O99.89 Other specified diseases and conditions complicating pregnancy, childbirth and the puerperium; D72.829 Elevated white blood cell count, unspecified; Z3A.41 41 weeks gestation of pregnancy; Z37.0 Single live birth
CPT/HCPCS: 59025; 59050; 85027; 86850; 86900; 99218; J7120; G0378

== ENCOUNTER 2018-09-07 01:45 | Observation (INO) | payer MEDICAID, SELFPAY ==
[2018-09-07 01:47] VITALS: BP 118/65; PULSE 76; RESP 16; TEMP 36.7; O2SAT 98; BMI 37.8
--- NOTE | 2018-09-07 02:08 | CT_ITS ---
STUDY: CT ABDOMEN AND PELVIS WITHOUT CONTRAST REASON FOR EXAM: Female, 28 years old. Abdominal pain. Elevated lipase RADIATION DOSAGE (If Supplied By Facility): CTDIvol = ( 19.55 ) mGy, DLP = ( 1040.47 ) mGycm TECHNIQUE: Transaxial images were obtained from the dome of the diaphragm to the symphysis pubis without oral contrast, and without intravenous contrast. Sagittal and coronal images were reconstructed. Individualized dose optimization techniques were used for this CT. COMPARISON: None. FINDINGS: The lung bases are clear. The liver is normal. No dilated intrahepatic biliary radicles. Gallstones. The spleen is normal. The pancreatic body is enlarged with mild peripancreatic streakiness. Both adrenals are normal. The kidneys are normal with no masses, calculi or hydronephrosis The stomach is normal. There is no bowel distention, or diverticulitis. Previous appendectomy No constricting lesions are seen in large bowel. The abdominal wall is intact with no hernias. There is no ascites or any free intraperitoneal air. No indication of epiploic appendagitis The vascular structures in the retroperitoneum are normal. There is no retrocrural, retroperitoneal or mesenteric adenopathy. The bones and joints are normal. The urinary bladder is normal.--The uterus is normal. There is no inguinal or pelvic adenopathy. There is no inguinal hernia. . CT/Abdomen/Pelvis without Cont IMPRESSION: Gallstones. Mild acute pancreatitis Previous appendectomy. No acute diverticulitis Electronically Signed: Carmine Valero MD at 4:10 EDT Tel , Service support ,
[2018-09-07 02:20] LABS: Absolute Lymphocyte Count 1.99 X10^3/ul (0.83-4.51); Absolute Neutrophil Count 9.2 X10^3/uL (2.0-7.7); Basophil# 0.02 X10^3/uL; Basophil% 0.2 % (0-1); Eosinophils% 0.8 % (0-5); Hematocrit 41.9 % (37-47); Hemoglobin 14.1 g/dl (12.0-15.0); Lymphocyte # 1.99 X10^3/ul (4.0); Lymphocyte % 16.6 % (19-41); Mean Corp Hgb Conc 33.7 g/gl (32-36); Mean Corpuscular Hgb 30.5 pg (27.0-32.0); Mean Corpuscular Volume 90.5 fL (81-99); Mean Platelet Vol. 10.4 fl (6.2-12.0); Monocyte# 0.68 X10^3/uL; Monocyte% 5.7 % (0-10); Neutrophil % 76.5 % (47-70); Platelet Count 339 K/mm3 (150-450); RBC Distribution Width CV 13.3 % (11.6-14.6); RBC Distribution Width SD 43.7 fl (35.1-43.9); Red Blood Count 4.63 M/mm3 (4.2-5.4)
[2018-09-07 02:23] LABS: POSITIVE COUNT NO; POSITIVE DIFFERENTIAL NO; POSITIVE MORPHOLOGY NO
[2018-09-07] MEDS: 0.9% Normal Saline 1,000 ML 1000 ML IV (02:29)
[2018-09-07 02:31] LABS: Red Blood Cells-Urine 0 SEEN /hpf (0-5)
[2018-09-07 02:42] LABS: Color, Urine Yellow (Yellow); Glucose, Dipstick Normal (Normal); Ketone-Dipstick 5 mg/dl (Negative); Leukocyte Esterase-Dipstick 25 /ul (Negative); Nitrite-Dipstick Negative (Negative); Occult Blood-Urine Negative /ul (Negative); Protein-Dipstick Negative (Negative); Urine Bilirubin Dipstick Negative (Negative); Urine Clarity Sl. Cloudy (Clear); Urine Urobilinogen 1 mg/dl (Normal); Urine pH 6.5 (5.0 - 8.0)
[2018-09-07 02:43] LABS: ALB/GLOB Ratio 0.9 RATIO (0.9-2.4); AST(SGOT) 164 U/L (15-37); Alanine Aminotransfer ALT/SGPT 138 U/L (13-56); Albumin, Serum 3.5 g/dL (3.2-5.0); Alkaline Phosphatase 124 U/L (45-117); Anion Gap 6 (5-15); BUN 13 mg/dL (7-18); BUN/Creat Ratio 15.6 RATIO (10-20); Calcium,Total 8.7 mg/dL (8.5-10.1); Chloride 108 mmol/L (98-107); Creatinine, Serum 0.83 mg/dL (0.55-1.02); EST Glomerular Filtration Rate 87 mL/min (>60); Est Glom Filt Rate - Afr Amer 105 mL/min (>60); Estimated Creatinine Clearance 76.83 ml/min; Glucose 130 mg/dL (74-106); Lipase 20956 U/L (73-393); Potassium 4.4 mmol/L (3.5-5.1); Protein, Total 7.5 g/dL (6.4-8.2); Sodium Level 141 mmol/L (136-145)
[2018-09-07 02:47] LABS: Internal QC Validated? YES +Cl - CLEAR BKGD; Pregnancy, Urine Negative Negative
[2018-09-07 02:49] LABS: Bacteria RARE /hpf (None Seen); Mucous, Urine RARE /hpf (<or=2+); Squamous Epithelial Cells - UA 0-5 SEEN /hpf (5-10); White Blood Cells 0-5 SEEN /hpf (0-5)
--- NOTE | 2018-09-07 04:30 | ED.VISSUMM ---
- ER Visit Summary Date of Service: 09/07/18 Chief Complaint: Abdominal pain History of Present Illness: The patient is a 28 F with mid abdominal pain that started around 7 PM this evening. Patient had similar symptoms earlier in the week intermittently, but this has been constant. Worse with eating. Associated with nausea. Patient has a history of gallstones. She of note, is also breast-feeding. Physical Examination: Afebrile and vital signs unremarkable. Upper abdomen is tender to palpation. No guarding or rebound. Skin appears normal in color without jaundice or pallor. Test Results: White count 12.0. Alkaline phosphatase 124, ALT 138, AST 164, lipase over 20,000. Urinalysis and hCG negative. CT showed gallstones and mild pancreatitis. Emergency Department Course and Treatment: Patient was treated with IV fluids. She declined pain medicine. She is breast-feeding. She said that her baby refuses to take from a bottle. She did not want to take any medications. Work-up showed pancreatitis. She does have history of gallstones. These are visualized on the CT. Findings were discussed with Dr. Bishop. Patient is appropriate for admission at this facility. Surgery will follow. Patient was discussed with the hospitalist who will admit. Patient was advised that she may require testing, treatments, or therapies, and this could affect her breast-feeding. Will discuss further as needed. She is currently pain-free and did not receive medications in the ED. Treatment Plan: As above Disposition: Admission Impression: 1. Pancreatitis This note was generated with [employer] dictation software. It may contain incorrect words, spelling, and punctuation that were not noted in review of the chart prior to signing ED Disposition - Plan for ED Patient: Referrals: Care Physician,No Primary [Primary Care Provider] -
--- NOTE | 2018-09-07 04:33 | ED.DCSUM_ITS ---
- ER Visit Summary Date of Service: 09/07/18 Chief Complaint: Abdominal pain History of Present Illness: The patient is a 28 F with mid abdominal pain that started around 7 PM this evening. Patient had similar symptoms earlier in the week intermittently, but this has been constant. Worse with eating. Associated with nausea. Patient has a history of gallstones. She of note, is also breast- feeding. Physical Examination: Afebrile and vital signs unremarkable. Upper abdomen is tender to palpation. No guarding or rebound. Skin appears normal in color without jaundice or pallor. Test Results: White count 12.0. Alkaline phosphatase 124, ALT 138, AST 164, lipase over 20,000. Urinalysis and hCG negative. CT showed gallstones and mild pancreatitis. Emergency Department Course and Treatment: Patient was treated with IV fluids. She declined pain medicine. She is breast-feeding. She said that her baby refuses to take from a bottle. She did not want to take any medications. Work-up showed pancreatitis. She does have history of gallstones. These are visualized on the CT. Findings were discussed with Dr. Bishop. Patient is appropriate for admission at this facility. Surgery will follow. Patient was discussed with the hospitalist who will admit. Patient was advised that she may require testing, treatments, or therapies, and this could affect her breast-feeding. Will discuss further as needed. She is currently pain-free and did not receive medications in the ED. Treatment Plan: As above Disposition: Admission Impression: 1. Pancreatitis This note was generated with [employer] dictation software. It may contain incorrect words, spelling, and punctuation that were not noted in review of the chart prior to signing ED Disposition - Plan for ED Patient: Referrals: Care Physician,No Primary [Primary Care Provider] -
--- NOTE | 2018-09-07 04:49 | PCM.HP.STD ---
Problem List (1) Gallstone pancreatitis Status: Acute History of Present Illness Date of Admission: 09/07/18 Chief Complaint: Abdominal pain The patient is a 28 year old F with no past medical history, presents 6 months after giving to her son, with epigastric abdominal pain that radiated to her back. In November of last year she had an ultrasound of her gallbladder that demonstrated multiple gallstones. This week she has been having abdominal pain intermittently with food and then last night around 7 PM she had a significant abdominal pain with food. She presented to the ER and was found to have a white blood cell count of 12, as well has elevated LFTs and alk phos. Her total bilirubin was normal, however her lipase was 20,000. She currently denies any abdominal pain, and is hesitant to take any pain meds considering she is still breast-feeding and her son does not take anything from a bottle. CT scan of her abdomen demonstrated gallstones and mild acute pancreatitis. Past Medical History Allergies NSAIDS (Non-Steroidal Anti-Inflamma Allergy (Verified 09/07/18 01:46) Unknown determined by genetic testing Home Medications: Ambulatory Orders Medication Instructions Recorded Pnv No.95/Ferrous Fum/Folic AC 1 each PO DAILY 01/04/17 [ Multivitamin Tablet] Surgical History: appendectomy [employer] History: - - Lives: Spouse/ Significant Other Smoking Status: Never smoker Alcohol: None Drugs: None - *Family History Maternal History Items: No pertinent history Paternal History Items: No pertinent history Review of Systems Constitutional: Denies: Chills, Fever, Weight Change HEENT: Denies: Head Aches, Sinus Congestion, Sinus Drainage Cardiovascular: Denies: Chest Pain, Palpitations Respiratory: Denies: Cough, Shortness of breath at rest, Sputum production Gastrointestinal: Reports: Abdominal Pain. Denies: Nausea, Vomiting Genitourinary: Denies: Dysuria Musculoskeletal: Denies: Joint Pain, Joint Tenderness Skin: Denies: Rash, Wounds Neurological: Denies: Numbness, Tingling, Focal weakness Psychiatric: Denies: Anxiety, Depression, Homicidal Ideations, Suicidal Ideations Hematologic/ Lymphatic: Denies: Easy Bruising, Easy Bleeding VTE Information - Inpt Only VTE Present on Admission: No Patient Problems: Active and Suspected Problems Gallstone pancreatitis (Acute) - Physical Exam General: Alert, Oriented x3, Cooperative, No apparent distress HEENT: Atraumatic, PERRLA, EOMI, Normocephalic Oral: Moist Mucosa Neck: Supple, No JVD, Trachea Midline Lungs: Clear to auscultation, Normal air movement, No rhonchi, No wheeze, No rales Cardiovascular: Regular rate, Regular Rhythm, Normal S1, Normal S2, No murmurs Abdomen: Soft, Non-Distended, No Hepato-splenomegaly, Tender - Mild in epigastric region Extremities: No edema, Capillary Refill Less than 3 Seconds Skin: No rashes, No breakdown Neurological: Neuro grossly intact, Sensory exam intact to light touch and pain Psych/Mental Status: Normal Affect, Appropriate Vital Signs Temp Pulse Resp BP Pulse Ox 98.0 F 76 16 118/65 98 09/07/18 01:47 09/07/18 01:47 09/07/18 01:47 09/07/18 01:47 09/07/18 01:47 Oxygen Delivery Method Room Air Weight: 200 lb Body Mass Index (BMI) 37.8 Laboratory Tests Past 24 Hrs 09/07/18 09/07/18 09/07/18 02:00 02:00 02:27 WBC 12.0 H RBC 4.63 Hgb 14.1 Hct 41.9 MCV 90.5 MCH 30.5 MCHC 33.7 RDW 13.3 RDW Differential 43.7 Plt Count 339 MPV 10.4 Immature Gran % (Auto) 0.200 Neut % (Auto) 76.5 H Lymph % (Auto) 16.6 L [place] % (Auto) 5.7 Eos % (Auto) 0.8 Baso % (Auto) 0.2 Absolute Neuts (auto) 9.2 H Absolute Lymphs (auto) 1.99 Total Counted Not Reportable Sodium 141 Potassium 4.4 Chloride 108 H Carbon Dioxide 27.0 Anion Gap 6 BUN 13 Creatinine 0.83 Estim Creat Clear Calc 76.83 Est GFR (MDRD) Af Amer 105 Est GFR (MDRD) Non-Af 87 BUN/Creatinine Ratio 15.6 Glucose 130 H Calcium 8.7 Total Bilirubin 0.50 AST 164 H ALT 138 H Alkaline Phosphatase 124 H Total Protein 7.5 Albumin 3.5 Globulin 4.0 Albumin/Globulin Ratio 0.9 Lipase 83216 H Urine Color Urine Clarity Urine pH Ur Specific [place] Urine Protein Urine Glucose (UA) Urine Ketones Urine Occult Blood Urine Nitrite Urine Bilirubin Urine Urobilinogen Ur Leukocyte Esterase Urine RBC Urine WBC Ur Squamous Epith Cells Urine Bacteria Urine Mucus Urine Test Negative 09/07/18 02:27 WBC RBC Hgb Hct MCV MCH MCHC RDW RDW Differential Plt Count MPV Immature Gran % (Auto) Neut % (Auto) Lymph % (Auto) [place] % (Auto) Eos % (Auto) Baso % (Auto) Absolute Neuts (auto) Absolute Lymphs (auto) Total Counted Sodium Potassium Chloride Carbon Dioxide Anion Gap BUN Creatinine Estim Creat Clear Calc Est GFR (MDRD) Af Amer Est GFR (MDRD) Non-Af BUN/Creatinine Ratio Glucose Calcium Total Bilirubin AST ALT Alkaline Phosphatase Total Protein Albumin Globulin Albumin/Globulin Ratio Lipase Urine Color Yellow Urine Clarity Sl. Cloudy Urine pH 6.5 Ur Specific [place] 1.020 Urine Protein Negative Urine Glucose (UA) Normal Urine Ketones 5 H Urine Occult Blood Negative Urine Nitrite Negative Urine Bilirubin Negative Urine Urobilinogen 1 H Ur Leukocyte Esterase 25 H Urine RBC 0 SEEN Urine WBC 0-5 SEEN Ur Squamous Epith Cells 0-5 SEEN Urine Bacteria RARE Urine Mucus RARE Urine Test Assessment/Plan All Active Problems Gallstone pancreatitis (Acute) 1. Gallstone pancreatitis -Elevated LFTs with an elevated alk phos with a normal T bili, lipase of 20,000 will not repeat -We will repeat CMP tomorrow -We will obtain a gallbladder ultrasound to better characterize her common bile duct diameter -Consult for general surgery evaluation -Currently n.p.o. and will continue with IV fluids plan will be to rest for 24 hours and if she still remains pain-free by tomorrow morning can initiate a low-fat diet -She currently does not want to take any narcotic pain meds because she is breast-feeding and her son does not take a bottle DVT: Ambulation Code Visit Inpatient E&M: 79212 Init Hosp L2
[2018-09-07 04:51] VITALS: BP 100/60; PULSE 84; RESP 16; O2SAT 99
[2018-09-07 06:05] VITALS: BP 118/64; PULSE 52; RESP 16; TEMP 37.2; O2SAT 97
--- NOTE | 2018-09-07 06:10 | US_ITS ---
STUDY: ABDOMINAL ULTRASOUND - RIGHT UPPER QUADRANT REASON FOR VISIT: Female, 28 years old. Elevated LFTs TECHNIQUE: Ultrasound evaluation of the right upper quadrant was performed with real-time and static maria-scale imaging. TECHNICAL QUALITY: Adequate. COMPARISON: None. FINDINGS: Liver: The liver measures 17 cm. There is normal echogenicity of the liver. The bile ducts are within normal limits. There is hepatic color flow. The direction of portal flow is hepatopetal. There is no demonstrated mass lesion. Gallbladder: Normal distended gallbladder. The gallbladder wall measures 2.8 mm. There is a negative sonographic Valderrama's sign. There is no pericholecystic fluid. There are multiple gallstones, and echogenic sludge. Common Bile Duct (C.B.D.): The common bile duct measures 4.9 mm. Pancreas: Normal size of the head, body and tail of the pancreas. There is increased echogenicity of the pancreas. There is no demonstrated pancreatic mass or cyst. Right Kidney: Normal size of the right kidney. The right kidney measures 10.4 x 5.7 x 4.3 cm. Normal renal cortex. The right cortex measures 1.0 cm. There is no demonstrated renal mass or cyst. There is no right hydronephrosis. US/Gallbladder IMPRESSION: Multiple gallstones and echogenic sludge within the gallbladder, but no wall thickening or pericholecystic fluid noted. Compounding Scaler notes a negative Valderrama sign. No sonographic findings of acute cholecystitis. If this is a strong clinical concern, further evaluation with HIDA scan may be of benefit. Nonspecific echogenic pancreas Electronically Signed: Matt Brewer MD at 10:32 EDT , Service support ,
[2018-09-07 06:12] VITALS: BMI 37.8; BMI 41.3
[2018-09-07] MEDS: 0.9% Normal Saline 1,000 ML 125 ML IV ×2 (06:35→14:54)
--- NOTE | 2018-09-07 08:06 | PCM.CONS.GEN ---
Reason for Consult Date of Consultation: 09/07/18 Reason for Consultation: biliary pancreatitis History of Present Illness: The patient is a 28 year old F with upper abdominal pain through to her back starting at 7PM last night. She presented to the [facility] ER - She was found to have a mildly elevated WBC count and a lipase level of >20,000. CT scan demonstrated cholelithiasis and mild pancreatic stranding. patient notes this morning she is feeling much better. She is asking whether it's imperative since she has her gallbladder removed because she would prefer to try natural treatments first. she is currently breast-feeding. She is concerned about surgery while she is breast-feeding. Past Medical History Allergies NSAIDS (Non-Steroidal Anti-Inflamma Allergy (Verified 09/07/18 01:46) Unknown determined by genetic testing Home Medications: Ambulatory Orders Medication Instructions Recorded Pnv No.95/Ferrous Fum/Folic AC 1 each PO DAILY 01/04/17 [ Multivitamin Tablet] Surgical History: appendectomy [employer] E[employer]ECTIVEN[employer] DIRECTOR History: - - Lives: Spouse/ Significant Other Smoking Status: Never smoker Alcohol: None Drugs: None - *Family History Maternal History Items: No pertinent history Paternal History Items: No pertinent history Review of Systems Constitutional: Denies: Chills, Fever, Weight Change HEENT: Denies: Head Aches, Sinus Congestion, Sinus Drainage Cardiovascular: Denies: Chest Pain, Palpitations Respiratory: Denies: Cough, Shortness of breath at rest, Sputum production Gastrointestinal: Reports: Abdominal Pain. Denies: Nausea, Vomiting Genitourinary: Denies: Dysuria Musculoskeletal: Denies: Joint Pain, Joint Tenderness Skin: Denies: Rash, Wounds Neurological: Denies: Numbness, Tingling, Focal weakness Psychiatric: Denies: Anxiety, Depression, Homicidal Ideations, Suicidal Ideations Hematologic/ Lymphatic: Denies: Easy Bruising, Easy Bleeding - Physical Exam General: Alert, Oriented x3, Cooperative Lungs: Clear to auscultation, Normal air movement Cardiovascular: Regular rate, No murmurs Abdomen: Bowel Sounds Present, Soft, Tender - minimal in the supraumbilical area. No right upper quadrant tenderness, no Valderrama sign Vital Signs Temp Pulse Resp BP Pulse Ox 98.9 F 52 L 16 118/64 97 09/07/18 06:05 09/07/18 06:05 09/07/18 06:05 09/07/18 06:05 09/07/18 06:05 Oxygen Delivery Method Room Air Weight: 99.2 kg Body Mass Index (BMI) 41.3 Intake and Output for Last 24 Hours 09/05/18 09/06/18 09/07/18 23:59 23:59 23:59 Intake Total 75 / 75 Balance 75 / 75 Laboratory Tests Past 24 Hrs 09/07/18 09/07/18 09/07/18 02:00 02:00 02:27 WBC 12.0 H RBC 4.63 Hgb 14.1 Hct 41.9 MCV 90.5 MCH 30.5 MCHC 33.7 RDW 13.3 RDW Differential 43.7 Plt Count 339 MPV 10.4 Immature Gran % (Auto) 0.200 Neut % (Auto) 76.5 H Lymph % (Auto) 16.6 L [place] % (Auto) 5.7 Eos % (Auto) 0.8 Baso % (Auto) 0.2 Absolute Neuts (auto) 9.2 H Absolute Lymphs (auto) 1.99 Total Counted Not Reportable Sodium 141 Potassium 4.4 Chloride 108 H Carbon Dioxide 27.0 Anion Gap 6 BUN 13 Creatinine 0.83 Estim Creat Clear Calc 76.83 Est GFR (MDRD) Af Amer 105 Est GFR (MDRD) Non-Af 87 BUN/Creatinine Ratio 15.6 Glucose 130 H Calcium 8.7 Total Bilirubin 0.50 AST 164 H ALT 138 H Alkaline Phosphatase 124 H Total Protein 7.5 Albumin 3.5 Globulin 4.0 Albumin/Globulin Ratio 0.9 Lipase 36303 H Urine Color Urine Clarity Urine pH Ur Specific [place] Urine Protein Urine Glucose (UA) Urine Ketones Urine Occult Blood Urine Nitrite Urine Bilirubin Urine Urobilinogen Ur Leukocyte Esterase Urine RBC Urine WBC Ur Squamous Epith Cells Urine Bacteria Urine Mucus Urine Test Negative 09/07/18 02:27 WBC RBC Hgb Hct MCV MCH MCHC RDW RDW Differential Plt Count MPV Immature Gran % (Auto) Neut % (Auto) Lymph % (Auto) [place] % (Auto) Eos % (Auto) Baso % (Auto) Absolute Neuts (auto) Absolute Lymphs (auto) Total Counted Sodium Potassium Chloride Carbon Dioxide Anion Gap BUN Creatinine Estim Creat Clear Calc Est GFR (MDRD) Af Amer Est GFR (MDRD) Non-Af BUN/Creatinine Ratio Glucose Calcium Total Bilirubin AST ALT Alkaline Phosphatase Total Protein Albumin Globulin Albumin/Globulin Ratio Lipase Urine Color Yellow Urine Clarity Sl. Cloudy Urine pH 6.5 Ur Specific [place] 1.020 Urine Protein Negative Urine Glucose (UA) Normal Urine Ketones 5 H Urine Occult Blood Negative Urine Nitrite Negative Urine Bilirubin Negative Urine Urobilinogen 1 H Ur Leukocyte Esterase 25 H Urine RBC 0 SEEN Urine WBC 0-5 SEEN Ur Squamous Epith Cells 0-5 SEEN Urine Bacteria RARE Urine Mucus RARE Urine Test Assessment/Plan All Active Problems Gallstone pancreatitis (Acute) gallstone pancreatitis, clinically resolved pain per patient I discussed with the patient the possibility of gallbladder surgery. I recommend she undergo cholecystectomy this hospital admission if her lipase improved quickly. The patient was more inclined to consider natural treatments prior to considering surgery. I discussed with her that I would consider the options were around it tomorrow. I was contacted by Mireya Delaney later in the day. The patient was clinically feeling well was requesting a diet and wished to be discharged to home. We felt this was reasonable. She will follow-up with me as an outpatient. If she noted worsening pain jaundiced/yellow eyes, or cure and ben-colored stools she is to return to the emergency department.
[2018-09-07 08:30] VITALS: BP 104/41; PULSE 60; RESP 18; TEMP 36.8
--- NOTE | 2018-09-07 11:15 | CASEMGMT ---
RN URSZULA CLEAN UP SUPERVISOR CM to room to meet with patient for initial transition planning/care coordination assessment. RN URSZULA introduced self and role at [facility]. Pt voices understanding and consents to assessment at this time. Pt resting in bed in no distress at this time. Pt is A/O at this time and answers all questions appropriately. Pharmacy and demographics verified at this time. PCP: No PCP. Given list of local PCP's found on [employer] website. Preferred Pharmacy: [facility] Insurance: [facility]. [facility] does not have a Salt Machine Operator Prescription Benefit: Yes Living Will/HPOA: [facility] does not have LW or HCPOA . Provided info. Provided information on advanced directives and given Social Service rac card with number to call if chooses in the future to utilize [facility] social work for advanced directive completion. LNOK: . Living Arrangements: Lives with and 2 children live with them. Transportation: HHC/SNF: No history of either. No needs identified. Pt wishes to return home and states has no concerns with going home at time of discharge. CM to follow for any discharge planning/needs. Pt voices no further concerns/needs at this time. Advised pt to ask for CM if any further questions/concerns/needs arise. Voices understanding. PLAN: Home with spousal support and discharge plans in place. Dashawn DIXON RN, CM
--- NOTE | 2018-09-07 12:15 | PCM.PROGNOTE ---
Subjective: The patient is a 28-year-old female with a past medical history of morbid obesity presented to the emergency department at 09/07/2018 complaining of epigastric abdominal pain that radiated to her back. Previous ultrasound in November 2017 demonstrated multiple gallstones. Vital signs of presentation to the emergency room are temperature 98, pulse rate 76, blood pressure 118/65, respiratory rate 16 and she was 98% saturated on room air. White blood cell count was elevated at 12.0 with a left shift. Hemoglobin and platelets were within normal limits. BMP was remarkable for an elevated random blood sugar at 130. Bilirubin was normal but the AST was elevated at 164 and the ALT at 138. Alkaline phosphatase was 124. Lipase was 20,956. UA had 0-5 WBCs. Ultrasound of the gallbladder shows multiple gallstones and echogenic sludge within the gallbladder but no wall thickening and no pericholecystic fluid noted. There was a negative Valderrama sign. She was admitted to the hospital with a diagnosis of gallstone pancreatitis and Dr. Bishop has been consulted. She is afebrile Vital signs are stable She denies nausea and has had no emesis Denies abdominal pain. Tells me she is hungry and she wants to go home. - Physical Exam General: Alert, Oriented x3, Cooperative, No apparent distress HEENT: Atraumatic Oral: Moist Mucosa Lungs: Clear to auscultation Cardiovascular: Regular rate, Regular Rhythm, Normal S1, Normal S2, No murmurs, No Gallop Abdomen: Bowel Sounds Present, Soft, Non Tender, Non-Distended Extremities: No edema Neurological: Cranial nerves II-XII grossly intact, Neuro grossly intact Psych/Mental Status: Normal Affect, Appropriate Vital Signs Temp Pulse Resp BP Pulse Ox 98.2 F 60 18 104/41 L 97 09/07/18 08:30 09/07/18 08:30 09/07/18 08:30 09/07/18 08:30 09/07/18 06:05 Oxygen Delivery Method Room Air Weight: 218 lb 11.177 oz Body Mass Index (BMI) 41.3 Intake and Output for Last 24 Hours 09/05/18 09/06/18 09/07/18 23:59 23:59 23:59 Intake Total 75 / 75 Balance 75 / 75 Laboratory Tests Past 24 Hrs 09/07/18 09/07/18 09/07/18 02:00 02:00 02:27 WBC 12.0 H RBC 4.63 Hgb 14.1 Hct 41.9 MCV 90.5 MCH 30.5 MCHC 33.7 RDW 13.3 RDW Differential 43.7 Plt Count 339 MPV 10.4 Immature Gran % (Auto) 0.200 Neut % (Auto) 76.5 H Lymph % (Auto) 16.6 L [place] % (Auto) 5.7 Eos % (Auto) 0.8 Baso % (Auto) 0.2 Absolute Neuts (auto) 9.2 H Absolute Lymphs (auto) 1.99 Total Counted Not Reportable Sodium 141 Potassium 4.4 Chloride 108 H Carbon Dioxide 27.0 Anion Gap 6 BUN 13 Creatinine 0.83 Estim Creat Clear Calc 76.83 Est GFR (MDRD) Af Amer 105 Est GFR (MDRD) Non-Af 87 BUN/Creatinine Ratio 15.6 Glucose 130 H Calcium 8.7 Total Bilirubin 0.50 AST 164 H ALT 138 H Alkaline Phosphatase 124 H Total Protein 7.5 Albumin 3.5 Globulin 4.0 Albumin/Globulin Ratio 0.9 Lipase 29891 H Urine Color Urine Clarity Urine pH Ur Specific [place] Urine Protein Urine Glucose (UA) Urine Ketones Urine Occult Blood Urine Nitrite Urine Bilirubin Urine Urobilinogen Ur Leukocyte Esterase Urine RBC Urine WBC Ur Squamous Epith Cells Urine Bacteria Urine Mucus Urine Test Negative 09/07/18 02:27 WBC RBC Hgb Hct MCV MCH MCHC RDW RDW Differential Plt Count MPV Immature Gran % (Auto) Neut % (Auto) Lymph % (Auto) [place] % (Auto) Eos % (Auto) Baso % (Auto) Absolute Neuts (auto) Absolute Lymphs (auto) Total Counted Sodium Potassium Chloride Carbon Dioxide Anion Gap BUN Creatinine Estim Creat Clear Calc Est GFR (MDRD) Af Amer Est GFR (MDRD) Non-Af BUN/Creatinine Ratio Glucose Calcium Total Bilirubin AST ALT Alkaline Phosphatase Total Protein Albumin Globulin Albumin/Globulin Ratio Lipase Urine Color Yellow Urine Clarity Sl. Cloudy Urine pH 6.5 Ur Specific [place] 1.020 Urine Protein Negative Urine Glucose (UA) Normal Urine Ketones 5 H Urine Occult Blood Negative Urine Nitrite Negative Urine Bilirubin Negative Urine Urobilinogen 1 H Ur Leukocyte Esterase 25 H Urine RBC 0 SEEN Urine WBC 0-5 SEEN Ur Squamous Epith Cells 0-5 SEEN Urine Bacteria RARE Urine Mucus RARE Urine Test Medical Necessity - Tobacco Use Smoking Status: Never smoker Assessment/Plan All Active Problems Gallstone pancreatitis (Acute) Impressions 1. Acute gallstone pancreatitis 2. Cholelithiasis 3. Obesity 4. Fatty food intolerance Advance diet to low-fat and if she tolerates this discharge home and have her follow-up with Dr. Bishop in the office in 2 weeks. We did discuss the fact with her that she has had symptoms of gallbladder disease in the past and now she has had pancreatitis. Pancreatitis can become chronic and be associated with severe pain and even diabetes mellitus. Acute pancreatitis can also be associated with . Low-fat diet at discharge
[2018-09-07 13:59] VITALS: BP 106/63; PULSE 45; RESP 18; TEMP 36.6; O2SAT 98
--- NOTE | 2018-09-07 15:00 | DCINST_ITS ---
- Discharge Diagnoses Current Active Problems: Current Active and Chronic Problems Gallstone pancreatitis (Acute) You will use the following diet at home:: Other - Low fat diet. Discharge Activity: Return to Normal Activity Call your doctor if you observe: Fever of 101 or Higher, Uncontrolled pain Allergies/Adverse Reactions: Allergies NSAIDS (Non-Steroidal Anti-Inflamma Allergy (Verified 09/07/18 01:46) Unknown determined by genetic testing Medications to take at Discharge Pnv No.95/Ferrous Fum/Folic AC [ Multivitamin Tablet] 1 each PO DAILY 01/04/17 Primary Care Physician: Care Physician,No Primary [Primary Care Provider] - Please follow up with your Primary Care Physician in: 1 Week Test Results: Test results from this visit will be discussed in further detail at your follow- up appointment, if applicable. Please Follow Up With: Dashawn Bishop MD When: 2 Weeks Proposed Discharge Date: 09/07/18
--- NOTE | 2018-09-07 15:01 | PCM.DC.SUM ---
Discharge Date and Diagnosis Date of Admission: 09/07/18 Date of Discharge: 09/07/18 - Primary Discharge Diagnosis Active and Suspected Problems 1. Acute gallstone pancreatitis 2. Cholelithiasis 3. Morbid obesity Hospital Course and Treatment Imaging Results: Diagnostic Data Abdomen/Pelvis CT 09/07/18 02:08 IMPRESSION: Gallstones. Mild acute pancreatitis Previous appendectomy. No acute diverticulitis Electronically Signed: Carmine Valero MD at 4:10 EDT Tel , Service support , Gallbladder Ultrasound 09/07/18 06:10 IMPRESSION: Multiple gallstones and echogenic sludge within the gallbladder, but no wall thickening or pericholecystic fluid noted. Hurricane Tracker notes a negative Valderrama sign. No sonographic findings of acute cholecystitis. If this is a strong clinical concern, further evaluation with HIDA scan may be of benefit. Nonspecific echogenic pancreas Electronically Signed: Matt Brewer MD at 10:32 EDT , Service support , Dr. Bishop- Surgery Operations: None Procedures: None Summary of Care Provided: The patient is a 28 year old F admitted 09/07/2018 due to abdominal pain. 1. Acute gallstone pancreatitis-CT of abdomen showed mild acute pancreatitis. Gallstones. Lipase 53417. Pain resolved. General surgery consult placed. Gallbladder ultrasound without acute cholecystitis. Continue low-fat diet at discharge. Follow-up with Dr. Arenas in 2 weeks. Follow-up with primary care physician in 1 week. 2. Cholelithiasis-gallbladder ultrasound with multiple gallstones and echogenic sludge within the gallbladder. No wall thickening, negative Valderrama sign. No evidence of acute cholecystitis. Outpatient follow-up with Dr. Arenas. 3. Morbid obesity-encourage diet and lifestyle modifications. Patient seen and examined prior to discharge. Physical assessment as noted above. Patient is stable for discharge with follow up recommendations as noted above. This patient was seen by BENITO Silva under the supervision of Dr. Delaney. - Physical Exam Vital Signs Temp Pulse Resp BP Pulse Ox 97.9 F 45 L 18 106/63 98 09/07/18 13:59 09/07/18 13:59 09/07/18 13:59 09/07/18 13:59 09/07/18 13:59 Oxygen Delivery Method Room Air Weight: 218 lb 11.177 oz Body Mass Index (BMI) 41.3 Intake and Output for Last 24 Hours 09/05/18 09/06/18 09/07/18 23:59 23:59 23:59 Intake Total 851 / 851 Output Total 600 / 600 Balance 251 / 251 Laboratory Tests Past 24 Hrs 09/07/18 09/07/18 09/07/18 02:00 02:00 02:27 WBC 12.0 H RBC 4.63 Hgb 14.1 Hct 41.9 MCV 90.5 MCH 30.5 MCHC 33.7 RDW 13.3 RDW Differential 43.7 Plt Count 339 MPV 10.4 Immature Gran % (Auto) 0.200 Neut % (Auto) 76.5 H Lymph % (Auto) 16.6 L [place] % (Auto) 5.7 Eos % (Auto) 0.8 Baso % (Auto) 0.2 Absolute Neuts (auto) 9.2 H Absolute Lymphs (auto) 1.99 Total Counted Not Reportable Sodium 141 Potassium 4.4 Chloride 108 H Carbon Dioxide 27.0 Anion Gap 6 BUN 13 Creatinine 0.83 Estim Creat Clear Calc 76.83 Est GFR (MDRD) Af Amer 105 Est GFR (MDRD) Non-Af 87 BUN/Creatinine Ratio 15.6 Glucose 130 H Calcium 8.7 Total Bilirubin 0.50 AST 164 H ALT 138 H Alkaline Phosphatase 124 H Total Protein 7.5 Albumin 3.5 Globulin 4.0 Albumin/Globulin Ratio 0.9 Lipase 60289 H Urine Color Urine Clarity Urine pH Ur Specific [place] Urine Protein Urine Glucose (UA) Urine Ketones Urine Occult Blood Urine Nitrite Urine Bilirubin Urine Urobilinogen Ur Leukocyte Esterase Urine RBC Urine WBC Ur Squamous Epith Cells Urine Bacteria Urine Mucus Urine Test Negative 09/07/18 02:27 WBC RBC Hgb Hct MCV MCH MCHC RDW RDW Differential Plt Count MPV Immature Gran % (Auto) Neut % (Auto) Lymph % (Auto) [place] % (Auto) Eos % (Auto) Baso % (Auto) Absolute Neuts (auto) Absolute Lymphs (auto) Total Counted Sodium Potassium Chloride Carbon Dioxide Anion Gap BUN Creatinine Estim Creat Clear Calc Est GFR (MDRD) Af Amer Est GFR (MDRD) Non-Af BUN/Creatinine Ratio Glucose Calcium Total Bilirubin AST ALT Alkaline Phosphatase Total Protein Albumin Globulin Albumin/Globulin Ratio Lipase Urine Color Yellow Urine Clarity Sl. Cloudy Urine pH 6.5 Ur Specific [place] 1.020 Urine Protein Negative Urine Glucose (UA) Normal Urine Ketones 5 H Urine Occult Blood Negative Urine Nitrite Negative Urine Bilirubin Negative Urine Urobilinogen 1 H Ur Leukocyte Esterase 25 H Urine RBC 0 SEEN Urine WBC 0-5 SEEN Ur Squamous Epith Cells 0-5 SEEN Urine Bacteria RARE Urine Mucus RARE Urine Test Discharge Diet: Low fat/ Low Cholesterol Discharge Activity: Return to Normal Activity Call your doctor if you observe: Fever of 101 or Higher, Uncontrolled pain Home Medications: Medications to take at Discharge Pnv No.95/Ferrous Fum/Folic AC [ Multivitamin Tablet] 1 each PO DAILY 01/04/17 Primary Care Physician: Care Physician,No Primary [Primary Care Provider] - Please follow up with your Primary Care Physician in: 1 Week Please Follow Up With: Dashawn Bishop MD When: 2 Weeks Disposition: Home Minutes spent on discharge:: 35 Patient Condition:: Stable Medical Necessity - Tobacco Use Smoking Status: Never smoker Meaningful Use Info Meaningful Use Diagnoses (Choose all that apply): None applicable
--- NOTE | 2018-09-07 15:08 | DS.PCM_ITS ---
Discharge Date and Diagnosis Date of Admission: 09/07/18 Date of Discharge: 09/07/18 - Primary Discharge Diagnosis Active and Suspected Problems 1. Acute gallstone pancreatitis 2. Cholelithiasis 3. Morbid obesity Hospital Course and Treatment Imaging Results: Diagnostic Data Abdomen/Pelvis CT 09/07/18 02:08 IMPRESSION: Gallstones. Mild acute pancreatitis Previous appendectomy. No acute diverticulitis Electronically Signed: Carmine Valero MD at 4:10 EDT Tel , Service support , Gallbladder Ultrasound 09/07/18 06:10 IMPRESSION: Multiple gallstones and echogenic sludge within the gallbladder, but no wall thickening or pericholecystic fluid noted. Senior Controls Analyst notes a negative Valderrama sign. No sonographic findings of acute cholecystitis. If this is a strong clinical concern, further evaluation with HIDA scan may be of benefit. Nonspecific echogenic pancreas Electronically Signed: Matt Brewer MD at 10:32 EDT , Service support , Dr. Bishop- Surgery Operations: None Procedures: None Summary of Care Provided: The patient is a 28 year old F admitted 09/07/2018 due to abdominal pain. 1. Acute gallstone pancreatitis-CT of abdomen showed mild acute pancreatitis. Gallstones. Lipase 84944. Pain resolved. General surgery consult placed. Gallbladder ultrasound without acute cholecystitis. Continue low-fat diet at discharge. Follow-up with Dr. Arenas in 2 weeks. Follow-up with primary care physician in 1 week. 2. Cholelithiasis-gallbladder ultrasound with multiple gallstones and echogenic sludge within the gallbladder. No wall thickening, negative Valderrama sign. No evidence of acute cholecystitis. Outpatient follow-up with Dr. Arenas. 3. Morbid obesity-encourage diet and lifestyle modifications. Patient seen and examined prior to discharge. Physical assessment as noted above. Patient is stable for discharge with follow up recommendations as noted above. This patient was seen by BENITO Silva under the supervision of Dr. Delaney. - Physical Exam Vital Signs Temp Pulse Resp BP Pulse Ox 97.9 F 45 L 18 106/63 98 09/07/18 13:59 09/07/18 13:59 09/07/18 13:59 09/07/18 13:59 09/07/18 13:59 Oxygen Delivery Method Room Air Weight: 218 lb 11.177 oz Body Mass Index (BMI) 41.3 Intake and Output for Last 24 Hours 09/05/18 09/06/18 09/07/18 23:59 23:59 23:59 Intake Total 851 / 851 Output Total 600 / 600 Balance 251 / 251 Laboratory Tests Past 24 Hrs 09/07/18 09/07/18 09/07/18 02:00 02:00 02:27 WBC 12.0 H RBC 4.63 Hgb 14.1 Hct 41.9 MCV 90.5 MCH 30.5 MCHC 33.7 RDW 13.3 RDW Differential 43.7 Plt Count 339 MPV 10.4 Immature Gran % (Auto) 0.200 Neut % (Auto) 76.5 H Lymph % (Auto) 16.[address] [place] % (Auto) 5.7 Eos % (Auto) 0.8 Baso % (Auto) 0.2 Absolute Neuts (auto) 9.2 H Absolute Lymphs (auto) 1.99 Total Counted Not Reportable Sodium 141 Potassium 4.4 Chloride 108 H Carbon Dioxide 27.0 Anion Gap 6 BUN 13 Creatinine 0.83 Estim Creat Clear Calc 76.83 Est GFR (MDRD) Af Amer 105 Est GFR (MDRD) Non-Af 87 BUN/Creatinine Ratio 15.6 Glucose 130 H Calcium 8.7 Total Bilirubin 0.50 AST 164 H ALT 138 H Alkaline Phosphatase 124 H Total Protein 7.5 Albumin 3.5 Globulin 4.0 Albumin/Globulin Ratio 0.9 Lipase 42485 H Urine Color Urine Clarity Urine pH Ur Specific [place] Urine Protein Urine Glucose (UA) Urine Ketones Urine Occult Blood Urine Nitrite Urine Bilirubin Urine Urobilinogen Ur Leukocyte Esterase Urine RBC Urine WBC Ur Squamous Epith Cells Urine Bacteria Urine Mucus Urine Test Negative 09/07/18 02:27 WBC RBC Hgb Hct MCV MCH MCHC RDW RDW Differential Plt Count MPV Immature Gran % (Auto) Neut % (Auto) Lymph % (Auto) [place] % (Auto) Eos % (Auto) Baso % (Auto) Absolute Neuts (auto) Absolute Lymphs (auto) Total Counted Sodium Potassium Chloride Carbon Dioxide Anion Gap BUN Creatinine Estim Creat Clear Calc Est GFR (MDRD) Af Amer Est GFR (MDRD) Non-Af BUN/Creatinine Ratio Glucose Calcium Total Bilirubin AST ALT Alkaline Phosphatase Total Protein Albumin Globulin Albumin/Globulin Ratio Lipase Urine Color Yellow Urine Clarity Sl. Cloudy Urine pH 6.5 Ur Specific [place] 1.020 Urine Protein Negative Urine Glucose (UA) Normal Urine Ketones 5 H Urine Occult Blood Negative Urine Nitrite Negative Urine Bilirubin Negative Urine Urobilinogen 1 H Ur Leukocyte Esterase 25 H Urine RBC 0 SEEN Urine WBC 0-5 SEEN Ur Squamous Epith Cells 0-5 SEEN Urine Bacteria RARE Urine Mucus RARE Urine Test Discharge Diet: Low fat/ Low Cholesterol Discharge Activity: Return to Normal Activity Call your doctor if you observe: Fever of 101 or Higher, Uncontrolled pain Home Medications: Medications to take at Discharge Pnv No.95/Ferrous Fum/Folic AC [ Multivitamin Tablet] 1 each PO DAILY 01/04/17 Primary Care Physician: Care Physician,No Primary [Primary Care Provider] - Please follow up with your Primary Care Physician in: 1 Week Please Follow Up With: Dashawn Bishop MD When: 2 Weeks Disposition: Home Minutes spent on discharge:: 35 Patient Condition:: Stable Medical Necessity - Tobacco Use Smoking Status: Never smoker Meaningful Use Info Meaningful Use Diagnoses (Choose all that apply): None applicable
[2018-09-07 17:38] VITALS: BP 106/63; PULSE 45; RESP 18; TEMP 36.6; O2SAT 98
== END 2018-09-07 17:39 | disposition home or self-care (01) ==
LOC: ED 02:35 → MS3 05:33
PROVIDERS: Admitting Provider Family Medicine; Emergency Provider Emergency Medicine; Visit Provider Internal Medicine
DX: K85.10 Biliary acute pancreatitis without necrosis or infection (principal); E66.01 Morbid (severe) obesity due to excess calories; Z68.41 Body mass index [BMI] 40.0-44.9, adult; Z71.3 Dietary counseling and surveillance; K80.20 Calculus of gallbladder without cholecystitis without obstruction
CPT/HCPCS: 74176; 76705; 80053; 81001; 81025; 83690; 85025; 96360; 96361; 99218; 99284; J7030; A4216; G0378

== ENCOUNTER 2018-12-16 13:37 | Emergency (ER) | payer MEDICAID, SELFPAY ==
[2018-12-16 13:37] VITALS: BP 114/79; PULSE 64; RESP 18; TEMP 36.6; O2SAT 99; BMI 35.3; BMI 37.8
[2018-12-16 14:58] LABS: Absolute Lymphocyte Count 2.83 X10^3/uL (0.83-4.51); Absolute Neutrophil Count 7.5 X10^3/uL (2.0-7.7); Basophil# 0.05 X10^3/uL; Basophil% 0.4 % (0-1); Eosinophil# 0.21 X10^3/uL; Eosinophils% 1.8 % (0-5); Hematocrit 45.4 % (37-47); Lymphocyte # 2.83 X10^3/ul (4.0); Lymphocyte % 24.9 % (19-41); Mean Corpuscular Hgb 31.1 pg (27.0-32.0); Mean Corpuscular Volume 94.2 fL (81-99); Mean Platelet Vol. 10.3 fl (6.2-12.0); Monocyte# 0.76 X10^3/uL; Monocyte% 6.7 % (0-10); NRBC Flagged by Analyzer 0 % (0-5); Neutrophil # 7.48 X10^3/uL (2.7-7.7); Neutrophil % 65.9 % (47-70); Platelet Count 312 K/mm3 (150-450); RBC Distribution Width SD 44.5 fl (35.1-43.9); Red Blood Count 4.82 M/mm3 (4.2-5.4); White Blood Count 11.4 K/mm3 (4.4-11.0)
[2018-12-16 14:59] LABS: Mucous, Urine 0 SEEN /hpf (<or=2+); Red Blood Cells-Urine 0 SEEN /hpf (0-5)
[2018-12-16 15:00] LABS: Color, Urine Yellow (Yellow); Glucose, Dipstick Normal (Normal); Ketone-Dipstick Negative (Negative); Leukocyte Esterase-Dipstick 25 /ul (Negative); Nitrite-Dipstick Negative (Negative); Occult Blood-Urine Negative /ul (Negative); Protein-Dipstick Negative (Negative); Specific Gravity, Urine 1.005 (1.002-1.030); Urine Bilirubin Dipstick Negative (Negative); Urine Clarity Clear (Clear); Urine Urobilinogen Normal (Normal)
[2018-12-16 15:02] LABS: Internal QC Validated? YES +Cl - CLEAR BKGD; Pregnancy, Urine Negative Negative
[2018-12-16 15:06] LABS: Bacteria 1+ /hpf (None Seen); Squamous Epithelial Cells - UA 0-5 SEEN /hpf (5-10); White Blood Cells 0-5 SEEN /hpf (0-5)
[2018-12-16 15:11] LABS: ALB/GLOB Ratio 0.8 RATIO (0.9-2.4); AST(SGOT) 31 U/L (15-37); Alanine Aminotransfer ALT/SGPT 85 U/L (13-56); Albumin, Serum 3.6 g/dL (3.2-5.0); Alkaline Phosphatase 142 U/L (45-117); Anion Gap 7 (5-15); BUN 7 mg/dL (7-18); BUN/Creat Ratio 9.5 RATIO (10-20); Calcium,Total 8.9 mg/dL (8.5-10.1); Chloride 106 mmol/L (98-107); Creatinine, Serum 0.74 mg/dL (0.55-1.02); EST Glomerular Filtration Rate 100 mL/min (>60); Est Glom Filt Rate - Afr Amer 121 mL/min (>60); Estimated Creatinine Clearance 86.17 ml/min; Globulin 4.3 g/dL (2.2-4.2); Glucose 86 mg/dL (74-106); Lipase 92 U/L (73-393); Potassium 3.6 mmol/L (3.5-5.1); Protein, Total 7.9 g/dL (6.4-8.2); Sodium Level 140 mmol/L (136-145)
--- NOTE | 2018-12-16 16:07 | ED.VIS.GEN ---
History of Present Illness Informant: Patient Narrative: 28-year-old female with no past medical history presents with concern for abdominal pain. States is been present for the past 3 to 4 days. Describes it as an intermittent crampy pain. Denies any nausea or vomiting. Denies any fever, chills, chest pain, shortness of breath. Denies any urinary symptoms. Patient last menstrual period was 9-1/2 months ago however they have been using condoms is contraception. Denies any trauma. Patient states that she was told 4 months ago that she may have a gallbladder issue and that she had pancreatitis. This was apparently treated as an outpatient. <Geovany Wren - Last Filed: 12/16/18 16:07> <Gayle Connolly - Last Filed: 12/16/18 18:08> Chief Complaint: Abd Pain Past Medical History Prior records reviewed: Yes Past Medical History: None Surgical History: appendectomy Smoking Status: Never smoker - Family History Maternal Family History: Reports: No pertinent history Paternal Family History: Reports: No pertinent history <Geovany Wren - Last Filed: 12/16/18 16:07> <Gayle Connolly - Last Filed: 12/16/18 18:08> - Allergies and Home Meds Allergies/Adverse Reactions: Allergies NSAIDS (Non-Steroidal Anti-Inflamma Allergy (Verified 12/16/18 13:39) Unknown determined by genetic testing Primary Care Physician: Care Physician,No Primary [Primary Care Provider] - Review of Systems General: Denies: Chills, Fever, Sweats Eyes: Denies: Visual changes - bilaterally, Diplopia ENT: Denies: Rhinorrhea, Sore throat Cardiovascular: Denies: Chest pain, Palpitations Respiratory: Denies: Dyspnea, Cough, Dyspnea on exertion Gastrointestinal: Reports: Abdominal pain. Denies: Nausea, Vomiting, Diarrhea, Melena, Hematochezia Genitourinary: Denies: Dysuria, Hematuria, Frequency Musculoskeletal: Denies: Back pain, Extremity Pain Skin: Denies: Rash, Wounds Neurological: Denies: Headache, Weakness, Numbness <Geovany Wren - Last Filed: 12/16/18 16:07> Physical Exam Vital Signs/Narrative: Vital Signs Temp Pulse Resp BP Pulse Ox 12/16/18 13:37 97.9 F 64 18 114/79 99 General: Well nourished, Well developed, No Acute Distress Head: Normocephalic, Atraumatic Eyes: Perrl, EOMI ENT: Moist mucous membranes, No rhinorrhea Neck: Supple, Nontender Cardiovascular: Regular rate, Regular rhythm, No murmurs Respiratory: No distress, CTA bilaterally, Chest nontender Abdomen: Soft, Nontender, Nondistended, Normal bowel sounds Back: Nontender, Normal Inspection Extremities: Nontender, No edema Skin: Normal color, No rash Neurological: Alert, Oriented x3, Cranial nerves II-XII grossly intact, Normal Strength, Normal Sensation Psychological: Normal affect, Normal Mood <Geovany Wren - Last Filed: 12/16/18 16:07> Vital Signs/Narrative: Vital Signs Resp 12/16/18 16:17 12 <Gayle Connolly - Last Filed: 12/16/18 18:08> Diagnostic/Tx/Re-eval Laboratory Results 12/16/18 12/16/18 12/16/18 14:30 14:30 14:45 WBC 11.4 H RBC 4.82 Hgb 15.0 Hct 45.4 MCV 94.2 MCH 31.1 MCHC 33.0 RDW Std Deviation 44.5 H RDW Coeff of Rufino 13.0 Plt Count 312 MPV 10.3 Immature Gran % (Auto) 0.300 Neut % (Auto) 65.9 Lymph % (Auto) 24.9 [place] % (Auto) 6.7 Eos % (Auto) 1.8 Baso % (Auto) 0.4 Absolute Neuts (auto) 7.5 Absolute Lymphs (auto) 2.83 Nucleated RBC % 0 Sodium Potassium Chloride Carbon Dioxide Anion Gap BUN Creatinine Estim Creat Clear Calc Est GFR (MDRD) Af Amer Est GFR (MDRD) Non-Af BUN/Creatinine Ratio Glucose Calcium Total Bilirubin AST ALT Alkaline Phosphatase Total Protein Albumin Globulin Albumin/Globulin Ratio Lipase Urine Color Yellow Urine Clarity Clear Urine pH 7.0 Ur Specific [place] 1.005 Urine Protein Negative Urine Glucose (UA) Normal Urine Ketones Negative Urine Occult Blood Negative Urine Nitrite Negative Urine Bilirubin Negative Urine Urobilinogen Normal Ur Leukocyte Esterase 25 H Urine RBC 0 SEEN Urine WBC 0-5 SEEN Ur Squamous Epith Cells 0-5 SEEN Urine Bacteria 1+ Urine Mucus 0 SEEN Urine Test Negative 12/16/18 14:45 WBC RBC Hgb Hct MCV MCH MCHC RDW Std Deviation RDW Coeff of Rufino Plt Count MPV Immature Gran % (Auto) Neut % (Auto) Lymph % (Auto) [place] % (Auto) Eos % (Auto) Baso % (Auto) Absolute Neuts (auto) Absolute Lymphs (auto) Nucleated RBC % Sodium 140 Potassium 3.6 Chloride 106 Carbon Dioxide 27.0 Anion Gap 7 BUN 7 Creatinine 0.74 Estim Creat Clear Calc 86.17 Est GFR (MDRD) Af Amer 121 Est GFR (MDRD) Non-Af 100 BUN/Creatinine Ratio 9.5 L Glucose 86 Calcium 8.9 Total Bilirubin 0.70 AST 31 ALT 85 H Alkaline Phosphatase 142 H Total Protein 7.9 Albumin 3.6 Globulin 4.3 H Albumin/Globulin Ratio 0.8 L Lipase 92 Urine Color Urine Clarity Urine pH Ur Specific [place] Urine Protein Urine Glucose (UA) Urine Ketones Urine Occult Blood Urine Nitrite Urine Bilirubin Urine Urobilinogen Ur Leukocyte Esterase Urine RBC Urine WBC Ur Squamous Epith Cells Urine Bacteria Urine Mucus Urine Test - Medical Decision Making She appears well nontoxic. Benign abdominal exam. Lab work unremarkable other than mildly elevated ALT and alk phos. Bilirubin not elevated. No evidence of pancreatitis. Patient was given GI cocktail. This did provide her with good relief of symptoms. Will be discharged home with Pepcid. Asked to follow-up with her primary care provider within the next 2 to 3 days. Asked to return for new or worsening symptoms. Patient agreeable to plan discharged home in stable condition. Stable home. Impression 1. abdominal pain <Geovany Wren - Last Filed: 12/16/18 16:07> - Medical Decision Making She is seen and evaluated with Dr. Wren. She is a history of pancreatitis. She developed upper abdominal pain over the past several days. No fever noted. On exam patient is nontoxic-appearing. She has very minimal tenderness in the epigastrium. No guarding or rebound. Laboratory evaluation is unremarkable. Test results discussed with patient and family at bedside. She will be discharged home to follow with her primary care physician. <Gayle Connolly - Last Filed: 12/16/18 18:08> ED Disposition <Geovany Wren - Last Filed: 12/16/18 16:07> <Gayle Connolly - Last Filed: 12/16/18 18:08> - Plan for ED Patient: Disposition: Home or Assisted Living Diagnosis: Abdominal pain Instructions: ABDOMINAL PAIN, Unknown Cause, (Female) Prescriptions: Famotidine [Pepcid] 20 mg PO BID #28 tab Prescription Printed Referrals: Care Physician,No Primary [Primary Care Provider] -
[2018-12-16] MEDS: Mag Hydrox/Al Hydrox/Simeth 30 ML UDC PO (16:14)
[2018-12-16 16:17] VITALS: RESP 12
== END 2018-12-16 16:50 | disposition home or self-care (01) ==
PROVIDERS: Emergency Provider Emergency Medicine
DX: R10.10 Upper abdominal pain, unspecified (principal); Z90.49 Acquired absence of other specified parts of digestive tract
CPT/HCPCS: 80053; 81001; 81025; 83690; 85025; 99284; A4216

== ENCOUNTER → 2020-12-08 10:50 | Outpatient (CLI) | payer MEDICAID, SELFPAY ==
[2020-12-08 10:22] VITALS: BMI 35.3
[2020-12-08 11:07] LABS: Absolute Lymphocyte Count 2.94 X10^3/uL (0.83-4.51); Absolute Neutrophil Count 4.1 X10^3/uL (2.0-7.7); Basophil# 0.04 X10^3/uL; Basophil% 0.5 % (0-1); Eosinophil# 0.23 X10^3/uL; Eosinophils% 2.9 % (0-5); Hemoglobin 13.8 g/dL (12.0-15.0); Lymphocyte # 2.94 X10^3/ul (0.83-4.51); Lymphocyte % 37.2 % (19-41); Mean Corp Hgb Conc 32.9 g/dL (32-36); Mean Corpuscular Hgb 30.5 pg (27.0-32.0); Mean Corpuscular Volume 92.7 fL (81-99); Mean Platelet Vol. 9.8 fl (6.2-12.0); Monocyte% 7.6 % (0-10); NRBC Flagged by Analyzer 0 % (0-5); Neutrophil # 4.09 X10^3/uL (2.7-7.7); Neutrophil % 51.7 % (47-70); Platelet Count 293 K/mm3 (150-450); RBC Distribution Width CV 12.6 % (11.6-14.6); RBC Distribution Width SD 43.4 fl (35.1-43.9); Red Blood Count 4.53 M/mm3 (4.2-5.4); White Blood Count 7.9 K/mm3 (4.4-11.0)
[2020-12-08 11:41] LABS: Thyroid Stim Hormone (TSH) 1.95 uIU/mL (0.358-3.74)
[2020-12-13 20:12] LABS: HPV Reflexed? NOT INDICATED
== END ==
PROVIDERS: Referring Provider Nurse Practitioner Women's Health; Visit Provider Nurse Practitioner Women's Health
DX: Z12.4 Encounter for screening for malignant neoplasm of cervix (principal); Z13.29 Encounter for screening for other suspected endocrine disorder; R53.83 Other fatigue; R63.5 Abnormal weight gain
CPT/HCPCS: 36415; 84443; 85025; 88175; G0145

== ENCOUNTER → 2023-06-20 | Outpatient (CLI) | payer SELFPAY ==
[2023-06-20 14:38] LABS: Thyroid Stim Hormone (TSH) 1.65 uIU/mL (0.358-3.74)
[2023-06-24 15:08] LABS: HPV APTIMA, High Risk Negative (Negative)
== END | disposition home or self-care (01) ==
PROVIDERS: Referring Provider Nurse Practitioner Women's Health; Visit Provider Nurse Practitioner Women's Health
DX: Z12.4 Encounter for screening for malignant neoplasm of cervix (principal); N91.5 Oligomenorrhea, unspecified
CPT/HCPCS: 36415; 84443; 87624; 88175; G0145

== ENCOUNTER → 2024-08-15 | Outpatient (CLI) | payer SELFPAY ==
--- NOTE | 2024-08-15 17:10 | CT_ITS ---
PROCEDURE: ABDOMEN/PELVIS WITH CONTRAST 08/15/2024 REASON FOR EXAM: EPIGASTRIC PAIN TECHNIQUE: Abdomen and pelvis CT with intravenous contrast. Coronal and Sagittal reconstruction series were provided. PATIENT PREPARATION: Per protocol ORAL CONTRAST TYPE: None. AMOUNT: mL CONTRAST: Isovue-300 VOLUME: 99 mL Not Provided Gauge IV One or more dose reduction techniques were used (e.g., Automated exposure control, adjustment of the mA and/or kV according to patient size, use of iterative reconstruction technique. RADIATION DOSE SUMMARY: CTDlvol: 36 mGy DLP: 1285 mGycm COMPARISON: None FINDINGS: Lung bases: No focal consolidation. Liver: Unremarkable Gallbladder: Distended gallbladder with layering gallstones with gallbladder wall edema/thickening. Spleen: Normal size. Pancreas: Normal size without evidence of mass surrounding inflammation or ductal dilation. Adrenals: Unremarkable Kidneys: Normal renal sizes. No hydronephrosis. Bladder: Unremarkable Reproductive Organs: Fibroid uterus. Bowel: Unremarkable Appendix: Unremarkable Lymph nodes: Unremarkable Vasculature: The abdominal aorta and IVC are normal. Peritoneum / Retroperitoneum: No free fluid or free air. Bones: Unremarkable CT/Abdomen/Pelvis WITH Contrast IMPRESSION: Distended gallbladder with layering gallstones with gallbladder wall thickening /edema, concerning for acute cholecystitis in the right clinical setting. Reading Location: [facility]
== END | disposition home or self-care (01) ==
LOC: CT 14:42
PROVIDERS: Referring Provider Physician Assistant; Visit Provider Physician Assistant
DX: R10.13 Epigastric pain (principal)
CPT/HCPCS: 74177; Q9967; A4216